=== PATIENT | male | born 1975 | race Caucasian/White ===

== ENCOUNTER 2024-06-13 10:13 | Inpatient (IN) ==
[2024-06-13] MEDS: OPTIRAY 320 125ml IV ONE (10:41)
[2024-06-13 10:43] LABS: iSTAT Creatinine 0.8 mg/dl (0.6-1.3); iSTAT Ionized Calcium 1.24 mmol/l (1.12-1.32); iSTAT Potassium 4.4 mmol/L (3.3-5.0)
--- NOTE | 2024-06-13 10:50 | CT Scan Report ---
CT head/brain wo con CLINICAL HISTORY: neuro deficit, acute stroke suspected Technique: Contiguous axial CT images of the head were acquired from the base of the skull to the adolfo ignacia without intravenous contrast administration. Images were viewed in brain, [facility]. Automated dose lowering techniques and/or adjustment according to patient size were utilized for this exam. Comparison: None available at the time of this dictation. Findings: The ventricles, basal cisterns, and cerebral sulci are normal. There is no acute intracranial hemorrh age or evidence of acute territorial infarction. Neither mass effect, shift of the midline structures , nor abnormal extra-axial fluid collections are shown. Soft tissue thickening seen in the sinuses most prominently in the bilateral maxillary sinuses. The o rbits appear normal. There are no acute fractures of the calvaria or scalp swelling. Impression: No acute intracranial hemorrhage, no evidence of acute territorial infarction or other acute intracra nial disease process. ACT 112: Negative or not required by law. Electronically signed by: Ramon Pink M.D. 06/13/2024 10:49 AM
[2024-06-13 10:52] LABS: Basophils # (auto) 0.06 K/uL (0.00-0.20); Basophils % (auto) 0.9 %; Eosinophils # (auto) 0.16 K/uL (0.00-0.50); Eosinophils % (auto) 2.4 %; Hematocrit (blood only) 45.3 % (42.0-52.0); Hemoglobin 15.6 g/dl (14.0-18.0); Immature Granulocytes # (auto) 0.03 K/uL (0.01-0.20); Immature Granulocytes % (auto) 0.4 %; Lymphocytes # (auto) 2.18 K/uL (1.20-3.40); Lymphocytes % (auto) 32.4 %; Mean Corpuscular Hgb Conc 34.4 g/dL (32.0-36.0); Mean Corpuscular Volume 84.2 fL (80.0-100.0); Mean Platelet Volume 8.5 fL (9.4-12.4); Monocytes # (auto) 0.43 K/uL (0.11-0.59); Monocytes % (auto) 6.4 %; Neutrophils # (auto) 3.86 K/uL (1.40-6.50); Neutrophils % (auto) 57.5 %; Platelet Count 235 K/uL (130-400); RDW Coefficient of Variation 11.9 % (11.5-14.5); RDW Standard Deviation 35.8 fL (36.4-46.3); Red Blood Count 5.38 M/uL (4.70-6.10); White Blood Count 6.72 K/ul (4.8-10.8)
--- NOTE | 2024-06-13 10:55 | CT Scan Report ---
CT ANGIOGRAM OF THE BRAIN CLINICAL HISTORY: Neurological deficit. Stroke like symptoms. Left-sided weakness. COMPARISON STUDY: Unenhanced CT of the brain performed concurrently on 06/13/2024. TECHNIQUE: Following the IV administration of 119 cc of Optiray 320, CT angiogram of the brain was pe rformed from the skull base to the vertex. Images are reviewed in the axial, sagittal, and coronal pl anes. 3-D MIPS images are created and assessed. IV contrast was administered without complication. A dose lowering technique was utilized adhering to the principles of ALARA. CT DOSE: 1392.18 mGy.cm FINDINGS: Brain parenchyma: The brain parenchyma is normal in appearance. There is no evidence of hemorrhage, m ass effect, or acute territorial ischemia noting angiographic phase technique. There is no evidence o f enhancing mass lesion on the angiogram phase images. No extra-axial fluid collection is seen. Anand- white matter differentiation is preserved. Ventricles, sulci, and cisterns: Normal in configuration. CT angiogram of the brain: There is mild atherosclerotic calcification of the cavernous carotid arter ies. The internal carotid arteries are widely patent, as are the anterior and middle cerebral arterie s. The vertebrobasilar system and posterior cerebral arteries are widely patent. The right vertebral artery is dominant. There is no aneurysm, high-grade stenosis, or focal vessel cutoff identified thro ughout the intracranial circulation. Dural sinuses: Clear as visualized. Orbits: The bony orbits are intact. The orbital contents are normal as visualized. Sinuses and mastoids: There is moderate mucosal thickening in the left maxillary antrum. Mild mucosal thickening is seen on the right. The remaining paranasal sinuses are clear. There are bilateral mast oid effusions. Calvarium: Unremarkable. IMPRESSION: 1. There is no evidence of hemorrhage, mass effect, or acute territorial ischemia noting angiographic phase technique. 2. Unremarkable CT angiogram of the brain. ACT 112: Negative or not required by law. Electronically signed by: Tima White M.D. 06/13/2024 10:53 AM
--- NOTE | 2024-06-13 10:56 | CT Scan Report ---
CT ANGIOGRAPHY OF THE NECK WITH CONTRAST CLINICAL HISTORY: neuro deficit, acute stroke suspected COMPARISON STUDY: No previous studies for comparison. Technique: CT angiography of the carotid and vertebral arteries was obtained using Optiray and 3D rec onstruction on an independent workstation. NASCET criteria was utilized. Automated exposure control was utilized for the study. A dose lowering technique was utilized adhering to the principles of ALA RA. Findings: Visualized portions of the lung apices are unremarkable. There is no cervical lymphadenopat hy. No cervical spine fractures are noted. There is moderate polypoid mucosal thickening of the left maxillary sinus, partially imaged on this exam. There is an apparent periapical lucency of the left f irst maxillary molar, partially imaged. There is mild calcified and noncalcified atherosclerotic plaq ue of the bilateral carotid bifurcations without stenosis. There is no aneurysm or dissection within the neck. The right vertebral artery is dominant and patent. There is moderate to severe stenosis at the origin of the left vertebral artery. IMPRESSION: 1. 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 Dominant, patent right adolfo tebral artery. 2. Mild plaque within the bilateral carotid bifurcations without stenosis within the bilateral common carotid or cervical internal carotid arteries. ACT 112: Negative or not required by law. Electronically signed by: Sarthak Means M.D. 06/13/2024 10:55 AM
--- NOTE | 2024-06-13 11:06 | Emergency Department Note ---
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 ED Provider Note NAME: JOHN PALENCIA AGE: 49 SEX: M : 1975 ARRIVES VIA: Walk-In INFORMANT: Patient ED PROVIDER(S): Vinay Aparicio MD CHIEF COMPLAINT: Stroke like symptoms, left upper and left lower extremity numbness and tingling PLAN: Disposition: Admit MEDICAL DECISION MAKING: The patient is a pleasant 49-year-old gentleman, [id number], with a past medical history of type 2 diabetes on metformin and insulin, hypertension who presents to the emergency department via walk-in for evaluation of numbness and tingling of his left arm and leg that he reports he noticed at 9 AM and did not feel any symptoms just prior to that. He denies any objective weakness but does feel that he has to place more effort in lifting his left leg. He describes the numbness and tingling of the left upper extremity along the ulnar aspect of the left arm and along the lateral aspect of the left leg. He denies any chest pain, shortness of breath, headache or dizziness. He denies any trouble speaking. Denies any prior episodes of similar symptoms. Patient is not on anticoagulation. Stroke alert was activated following triage assessment due to left upper and lower extremity symptoms. On my evaluation the patient is in no acute distress, afebrile with blood pressure 200/100s, heart rate in the 90s and vital signs otherwise stable. Appears clinically dry. On my examination the patient has no objective focal neurologic deficits. He describes subjective numbness and tingling of the left upper and lower extremity per HPI. Objectively 5/5 strength and SILT x 4 extremities. NIH score is 1 due to subjective numbness and tingling. CT of the head and CT of the head and neck were performed and were negative for ICH, ischemia or severe narrowing occlusion of large vessels. Stenosis of the left vertebral artery as described but note is made of right vertebral artery dominance. Mild carotid plaques are described. EKG without overt acute ischemia. CXR negative for acute cardiopulmonary process per my personal preliminary review/interpretation. WBC, H/H and platelets within normal limits. Chemistry without metabolic acidosis. Electrolytes and LFTs unremarkable. HS troponin 5.3, within normal limits. UA without evidence of infection. Case was discussed with [facility] telestroke neurology, Dr. Saldaña. Appreciate consultation and evaluation via telestroke monitor. He did feel there may be a component of weakness and did discuss and consent with the patient for TNK administration. Blood pressure was improved following IV fluid ration and to milligrams of IV labetalol. This was continued to be monitored closely. Nicardipine was ordered to the bedside if it were to be needed. Following 10 minutes the patient did report resolution of symptoms. Case was discussed with Ree Yung PA-C [facility]. Of note, I was notified of the patient's RN that the patient was having minor gingival bleeding which was occurring along the gingival line of the lower central and lateral incisors without overt hemorrhage. This was easily controlled with 4 x 4 followed by the placement of a teabag. Further management per admitting team. Triage Nursing notes reviewed and agree them. Prior/external medical records reviewed Vital Signs: reviewed Differential diagnosis: Infection, dehydration, metabolic abnormality, hypo/hyperglycemia, electrolyte disturbance, anemia, hypoxia, cardiac sources, intracerebral event, toxicologic, neurologic, as well as other pathologies. ER treatment provided: See below. Diagnostics interpreted by me: ECG: Normal sinus rhythm, 80 bpm, no ectopy, no overt ST elevation or depression, QTc 431, QRS 94. Cardiac Monitoring: An order for continuous cardiac monitoring was placed and demonstrated Normal sinus rhythm, 80 bpm, no ectopy. Laboratory studies: See below Imaging studies: See below Consultation(s): Dr. Saldaña, [facility] telestroke neurology. Ree Yung PA-C with Dr. Faith, [facility] hospitalist. HPI: The patient is a pleasant 49-year-old gentleman, [id number], with a past medical history of type 2 diabetes on metformin and insulin, hypertension who presents to the emergency department via walk-in for evaluation of numbness and tingling of his left arm and leg that he reports he noticed at 9 AM and did not feel any symptoms just prior to that. He denies any objective weakness but does feel that he has to place more effort in lifting his left leg. He describes the numbness and tingling of the left upper extremity along the ulnar aspect of the left arm and along the lateral aspect of the left leg. He denies any chest pain, shortness of breath, headache or dizziness. He denies any trouble speaking. Denies any prior episodes of similar symptoms. Patient is not on anticoagulation. ROS: See above HPI for pertinent positives & negatives. A total of 10 systems reviewed and were otherwise negative. VITALS:See Below PHYSICAL EXAMINATION: GENERAL: Awake, alert, well-appearing, in no distress HENT: Normocephalic, atraumatic. Oropharynx with dry mucous membranes and otherwise unremarkable. EYES: Normal conjunctiva. Sclera non-icteric. EOMI. No nystamgus. PEARRL. NECK: Supple. No nuchal rigidity. FROM. No JVD. RESPIRATORY: Clear to auscultation. CARDIAC: Regular rate, normal rhythm. Extremities warm and well perfused. Pulses equal. ABDOMEN: Soft, non-distended. No tenderness to palpation. No rebound or guarding. No masses. MUSCULOSKELETAL: Chest examination reveals no tenderness. The back is symmetrical on inspection without obvious abnormality. There is no CVA tenderness to palpation. No joint edema. LOWER EXTREMITIES: Calves are equal size bilaterally and non-tender. No edema. No discoloration. NEURO: Cranial nerves II-XII grossly intact. Speech is fluent. Subjective numbness and tingling of the left upper and lower extremity per HPI. Objectively 5/5 strength and SILT x 4 extremities. NIH score is 1 due to subjective numbness and tingling. SKIN: No rash or jaundice noted. ED COURSE: Critical Care: I have personally spent greater than 45 minutes of critical care time in the direct management of this patient. This includes bedside care, interpretation of diagnostic studies, and testing, discussion with consultants, patient, and family members, and other required patient management activities. This 45 minutes is in excess of all separately billable procedures. 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 (Acute) Stroke-like symptoms (Acute) Allergic reaction (Acute) Allergic reaction (Acute) Medical History Diabetes mellitus (09/01/12) Surgical History History of ankle surgery Family History Other No pertinent family history Social History Smoking Status: Never smoker Hx Alcohol Use: Yes Alcohol type: beer Hx Substance Use: No Preferred Language: Togolese Communication Ability: Effective Environmental Safety Specialist Required: No Beliefs That Will Affect Care: None Current Living Situation: Spouse Feels Safe at Home: Yes Assistive Devices: Glasses Allergies Allergies Allergy/AdvReac Type Severity Reaction Status Date / Time Penicillins Allergy Unknown Unknown Verified 10/30/19 23:45 Home Meds Home Medications Medication Instructions Recorded Confirmed gabapentin 300 mg capsule 300 mg PO HS 10/30/19 06/13/24 dulaglutide 0.75 mg/0.5 mL 0.75 mg subcut WK 06/13/24 06/13/24 subcutaneous pen injector (Trulicity) fluoxetine 20 mg capsule 20 mg PO QAM 06/13/24 06/13/24 metformin 500 mg tablet,extended 1,000 mg PO BID 06/13/24 06/13/24 release 24 hr Results & Data (ED) Vital Signs Vital Signs - 24 hr 06/13/24 10:16 06/13/24 10:53 06/13/24 10:53 Temperature 36.9 C Temperature Source Temporal Artery Scan Pulse Rate 84 91 H Pulse Rate [Apical] 83 Pulse Rate from SpO2 Sensor Pulse Rhythm [Apical] Regular Pulse Strength [Apical] Normal Respiratory Rate 20 14 Respiratory Effort / Characteristics Non-Labored Spontaneous Non-Labored Spontaneous Respiratory Depth Normal Normal Respiratory Pattern Regular Blood Pressure 197/105 H Blood Pressure [Right Arm] 203/103 H Blood Pressure Mean 135 Blood Pressure Mean [Right Arm] 136 Blood Pressure Position [Right Arm] Sitting Pulse Oximetry 97 99 Oxygen Delivery Method Room Air Room Air Sepsis Recent Fever Within 48 Hours No Sepsis New/Unexplained Change in Mental Status No Sepsis Action Taken by Nursing No Action Required 06/13/24 10:56 06/13/24 11:05 06/13/24 11:05 Temperature Temperature Source Pulse Rate 87 Pulse Rate [Apical] Pulse Rate from SpO2 Sensor 86 Pulse Rhythm [Apical] Pulse Strength [Apical] Respiratory Rate 18 Respiratory Effort / Characteristics Respiratory Depth Respiratory Pattern Blood Pressure 198/103 H 198/103 H Blood Pressure [Right Arm] Blood Pressure Mean 129 129 Blood Pressure Mean [Right Arm] Blood Pressure Position [Right Arm] Pulse Oximetry 99 Oxygen Delivery Method Sepsis Recent Fever Within 48 Hours Sepsis New/Unexplained Change in Mental Status Sepsis Action Taken by Nursing 06/13/24 11:09 06/13/24 11:22 06/13/24 11:22 Temperature Temperature Source Pulse Rate 86 Pulse Rate [Apical] Pulse Rate from SpO2 Sensor Pulse Rhythm [Apical] Pulse Strength [Apical] Respiratory Rate Respiratory Effort / Characteristics Respiratory Depth Respiratory Pattern Blood Pressure 198/103 H 182/95 H 182/95 H Blood Pressure [Right Arm] Blood Pressure Mean 132 132 Blood Pressure Mean [Right Arm] Blood Pressure Position [Right Arm] Pulse Oximetry Oxygen Delivery Method Sepsis Recent Fever Within 48 Hours Sepsis New/Unexplained Change in Mental Status Sepsis Action Taken by Nursing 06/13/24 11:26 06/13/24 11:26 06/13/24 11:30 Temperature Temperature Source Pulse Rate Pulse Rate [Apical] Pulse Rate from SpO2 Sensor Pulse Rhythm [Apical] Pulse Strength [Apical] Respiratory Rate Respiratory Effort / Characteristics Respiratory Depth Respiratory Pattern Blood Pressure 181/93 H 181/93 H 177/92 H Blood Pressure [Right Arm] Blood Pressure Mean 122 122 130 Blood Pressure Mean [Right Arm] Blood Pressure Position [Right Arm] Pulse Oximetry Oxygen Delivery Method Sepsis Recent Fever Within 48 Hours Sepsis New/Unexplained Change in Mental Status Sepsis Action Taken by Nursing 06/13/24 11:31 06/13/24 11:32 06/13/24 11:38 Temperature Temperature Source Pulse Rate 79 82 Pulse Rate [Apical] Pulse Rate from SpO2 Sensor 82 Pulse Rhythm [Apical] Pulse Strength [Apical] Respiratory Rate 18 Respiratory Effort / Characteristics Respiratory Depth Respiratory Pattern Blood Pressure 177/92 H 176/88 H Blood Pressure [Right Arm] Blood Pressure Mean 136 Blood Pressure Mean [Right Arm] Blood Pressure Position [Right Arm] Pulse Oximetry 99 Oxygen Delivery Method Sepsis Recent Fever Within 48 Hours Sepsis New/Unexplained Change in Mental Status Sepsis Action Taken by Nursing 06/13/24 11:41 06/13/24 11:42 06/13/24 11:42 Temperature Temperature Source Pulse Rate 77 Pulse Rate [Apical] Pulse Rate from SpO2 Sensor 77 Pulse Rhythm [Apical] Pulse Strength [Apical] Respiratory Rate 15 Respiratory Effort / Characteristics Respiratory Depth Respiratory Pattern Blood Pressure 174/87 H 174/87 H Blood Pressure [Right Arm] Blood Pressure Mean 121 121 Blood Pressure Mean [Right Arm] Blood Pressure Position [Right Arm] Pulse Oximetry 98 Oxygen Delivery Method Sepsis Recent Fever Within 48 Hours Sepsis New/Unexplained Change in Mental Status Sepsis Action Taken by Nursing 06/13/24 11:44 06/13/24 11:56 06/13/24 11:56 Temperature Temperature Source Pulse Rate 77 Pulse Rate [Apical] Pulse Rate from SpO2 Sensor Pulse Rhythm [Apical] Pulse Strength [Apical] Respiratory Rate 12 Respiratory Effort / Characteristics Respiratory Depth Respiratory Pattern Blood Pressure 171/89 H 171/89 H Blood Pressure [Right Arm] Blood Pressure Mean 119 119 Blood Pressure Mean [Right Arm] Blood Pressure Position [Right Arm] Pulse Oximetry Oxygen Delivery Method Sepsis Recent Fever Within 48 Hours Sepsis New/Unexplained Change in Mental Status Sepsis Action Taken by Nursing 06/13/24 11:57 06/13/24 12:00 06/13/24 12:05 Temperature 36.4 C L Temperature Source Oral Pulse Rate 78 Pulse Rate [Apical] 76 Pulse Rate from SpO2 Sensor 78 Pulse Rhythm [Apical] Regular Pulse Strength [Apical] Normal Respiratory Rate 19 13 Respiratory Effort / Characteristics Non-Labored Spontaneous Respiratory Depth Normal Respiratory Pattern Regular Blood Pressure 169/88 H Blood Pressure [Right Arm] 171/89 H Blood Pressure Mean 113 Blood Pressure Mean [Right Arm] 116 Blood Pressure Position [Right Arm] Semi-fowlers Pulse Oximetry 98 98 Oxygen Delivery Method Room Air Sepsis Recent Fever Within 48 Hours Sepsis New/Unexplained Change in Mental Status Sepsis Action Taken by Nursing 06/13/24 12:08 06/13/24 12:14 06/13/24 12:15 Temperature Temperature Source Pulse Rate 78 Pulse Rate [Apical] 75 Pulse Rate from SpO2 Sensor 78 Pulse Rhythm [Apical] Pulse Strength [Apical] Respiratory Rate 9 L 18 Respiratory Effort / Characteristics Respiratory Depth Respiratory Pattern Blood Pressure 175/89 H Blood Pressure [Right Arm] 175/89 H Blood Pressure Mean 130 Blood Pressure Mean [Right Arm] 117 Blood Pressure Position [Right Arm] Pulse Oximetry 97 98 Oxygen Delivery Method Sepsis Recent Fever Within 48 Hours Sepsis New/Unexplained Change in Mental Status Sepsis Action Taken by Nursing 06/13/24 12:15 06/13/24 12:23 06/13/24 12:26 Temperature Temperature Source Pulse Rate 79 80 Pulse Rate [Apical] Pulse Rate from SpO2 Sensor 79 79 Pulse Rhythm [Apical] Pulse Strength [Apical] Respiratory Rate 17 16 Respiratory Effort / Characteristics Respiratory Depth Respiratory Pattern Blood Pressure 175/89 H Blood Pressure [Right Arm] Blood Pressure Mean 130 Blood Pressure Mean [Right Arm] Blood Pressure Position [Right Arm] Pulse Oximetry 99 99 Oxygen Delivery Method Sepsis Recent Fever Within 48 Hours Sepsis New/Unexplained Change in Mental Status Sepsis Action Taken by Nursing 06/13/24 12:30 06/13/24 12:30 Temperature Temperature Source Pulse Rate Pulse Rate [Apical] Pulse Rate from SpO2 Sensor Pulse Rhythm [Apical] Pulse Strength [Apical] Respiratory Rate Respiratory Effort / Characteristics Respiratory Depth Respiratory Pattern Blood Pressure 171/88 H 171/88 H Blood Pressure [Right Arm] Blood Pressure Mean 101 101 Blood Pressure Mean [Right Arm] Blood Pressure Position [Right Arm] Pulse Oximetry Oxygen Delivery Method Sepsis Recent Fever Within 48 Hours Sepsis New/Unexplained Change in Mental Status Sepsis Action Taken by Nursing Laboratory Data Attestation: I reviewed the patient's lab results. 06/13/24 10:29 06/13/24 10:29 Lab Results 06/13/24 06/13/24 Range/Units 10:29 10:31 WBC 6.72 (4.8-10.8) K/ul RBC 5.38 (4.70-6.10) M/uL Hgb 15.6 (14.0-18.0) g/dl POC Hgb 16.0 (14.0-18.0) g/dl Hct 45.3 (42.0-52.0) % POC Hct 47 (42-52) % MCV 84.2 (80.0-100.0) fL MCH 29.0 (25.0-34.0) pg MCHC 34.4 (32.0-36.0) g/dL RDW Std Deviation 35.8 L (36.4-46.3) fL RDW Coeff of Ronen 11.9 (11.5-14.5) % Plt Count 235 (130-400) K/uL MPV 8.5 L (9.4-12.4) fL Immature Gran % (Auto) 0.4 % Neut % (Auto) 57.5 % Lymph % (Auto) 32.4 % Moca % (Auto) 6.4 % Eos % (Auto) 2.4 % Baso % (Auto) 0.9 % Neut # (Auto) 3.86 (1.40-6.50) K/uL Lymph # (Auto) 2.18 (1.20-3.40) K/uL Moca # (Auto) 0.43 (0.11-0.59) K/uL Eos # (Auto) 0.16 (0.00-0.50) K/uL Baso # (Auto) 0.06 (0.00-0.20) K/uL Immature Gran # (Auto) 0.03 (0.01-0.20) K/uL PT 9.9 (9.0-12.0) Seconds INR 0.9 (0.9-1.1) APTT 25 (21-31) Seconds PTT Ratio 0.9 POC Sodium 139 (135-144) mmol/L Sodium 137 (136-145) mmol/L POC Potassium 4.4 (3.3-5.0) mmol/L Potassium 4.3 (3.5-5.1) mmol/L POC Chloride 98 L (101-112) mmol/L Chloride 100 (98-107) mmol/L Carbon Dioxide 29 (21-32) mmol/L POC Total CO2 27 (24-31) mmol/L Anion Gap 8 (3-11) POC Anion Gap 19.0 (16-25) mmol/L POC BUN 9 (7-18) mg/dl BUN 11 (6-23) mg/dl Creatinine 0.78 (0.6-1.4) mg/dl POC Creatinine 0.8 (0.6-1.3) mg/dl Est Cr Clr Drug Dosing 147.3 ml/min eGFR 110.69 BUN/Creatinine Ratio 14.1 (10-20) Glucose 217 H (70-99(Fasting)) mg/dl POC Glucose (other) 219 H (70-99) mg/dl Calcium 10.2 (8.6-10.3) mg/dl POC Ioniz Calcium Lupillo 1.24 (1.12-1.32) mmol/l Magnesium 2.0 (1.7-2.4) mg/dl Total Bilirubin 0.4 (0.2-1.0) mg/dl AST 20 (13-39) U/L ALT 27 (7-52) U/L Alkaline Phosphatase 57 (34-104) U/L Troponin I High Sens 5.3 (0-20) pg/ml Total Protein 8.0 (6.0-8.3) gm/dl Albumin 4.9 (3.4-5.0) gm/dl Globulin 3.1 (2.5-4.0) gm/dl Albumin/Globulin Ratio 1.6 (0.9-2) Administered Medications Gabapentin (Gabapentin 300 Mg Cap) 300 mg PO HS HAYDEE Stop: 07/13/24 20:59 Last Admin: 06/13/24 21:36 Dose: 300 mg Documented By: DIANDRA Insulin Aspart (Insulin Aspart Per Unit Charge) 0 units SC ACHS HAYDEE Stop: 07/13/24 16:29 Last Admin: 06/13/24 21:36 Dose: Not Given Documented By: Admin: 06/13/24 16:37 Dose: 13 units Documented By: GLORIA Co-signed By: YOU Lisinopril (Lisinopril 5 Mg Tab) 5 mg PO QAM [facility] Stop: 07/13/24 13:14 Last Admin: 06/13/24 16:02 Dose: 5 mg Documented By: GLORIA Miscellaneous (Icu Electrolyte Replacement Protocol) 1 each N/A BID@06,18 [facility]; Protocol Stop: 06/20/24 17:59 Last Admin: 06/13/24 16:41 Dose: Not Given Documented By: GLORIA Discontinued Medications Gadobutrol (Gadobutrol 65ml Vial) 12 ml IV ONCE ONE Stop: 06/13/24 13:42 Last Admin: 06/13/24 13:44 Dose: 12 ml Documented By: MARNI Sodium Chloride (Nss) 1,000 mls @ 999 mls/hr IV .Q1H1M ONE Stop: 06/13/24 11:26 Last Infusion: 06/13/24 12:34 Dose: Infused Documented By: Admin: 06/13/24 11:08 Dose: 999 mls/hr Documented By: MARGRET Nicardipine HCl 25 mg/ Sodium (Chloride) 250 mls @ 50 mls/hr IV .Q5H [facility]; Protocol Stop: 07/13/24 11:29 Last Admin: 06/13/24 15:35 Dose: Not Given Documented By: GLORIA Tenecteplase 25 mg/ Syringe 5 mls @ 60 mls/min IV NOW STA Stop: 06/13/24 11:30 Last Admin: 06/13/24 11:27 Dose: 60 mls/min Documented By: MARGRET Co-signed By: LILLIANA Ioversol (Optiray 320 125ml) 119 ml IV ONCE ONE Stop: 06/13/24 10:42 Last Admin: 06/13/24 10:41 Dose: 119 ml Documented By: JANES Labetalol HCl (Labetalol Hcl Iv 5 Mg/Ml 20ml) 10 mg IV NOW STA Stop: 06/13/24 11:05 Last Admin: 06/13/24 11:09 Dose: 10 mg Documented By: MARGRET Zamora (Stat Iv Infusion Titration Per Protocol) 1 each N/A NOW STA Stop: 06/13/24 11:23 Last Admin: 06/13/24 15:34 Dose: Not Given Documented By: GLORIA Zamora (Icu Protocol For Hyperglycemia) 1 each N/A ACHS HAYDEE Stop: 06/15/24 16:29 Last Admin: 06/13/24 15:35 Dose: Not Given Documented By: GLORIA Zamora (Icu Protocol For Hyperglycemia) 1 each N/A ACHS HAYDEE Stop: 06/15/24 16:29 Last Admin: 06/13/24 15:36 Dose: Not Given Documented By: GLORIA Imaging Data Radiologist's Impression: Chest X-Ray 06/13/24 10:26 XR chest 1V portable CLINICAL HISTORY: neuro deficit, acute stroke suspected TECHNIQUE: Single frontal radiograph of the chest was obtained. Comparison: Comparison is made to chest radiograph 01/10/2014 FINDINGS: No lines and tubes are seen. The cardiomediastinal silhouette is normal. The lungs are clear. No evidence of pleural effusion or pneumothorax. IMPRESSION: No acute chest disease. ACT 112: Negative or not required by law. Electronically signed by: Ramon Pink M.D. 06/13/2024 11:[address] 06/13/24 10:26 CT head/brain wo con CLINICAL HISTORY: neuro deficit, acute stroke suspected Technique: Contiguous axial CT images of the head were acquired from the base of the skull to the vertex without intravenous contrast administration. Images were viewed in brain, subdural and bone windows. Automated dose lowering techniques and/or adjustment according to patient size were utilized for this exam. Comparison: None available at the time of this dictation. Findings: The ventricles, basal cisterns, and cerebral sulci are normal. There is no acute intracranial hemorrhage or evidence of acute territorial infarction. Neither mass effect, shift of the midline structures, nor abnormal extra-axial fluid collections are shown. Soft tissue thickening seen in the sinuses most prominently in the bilateral maxillary sinuses. The orbits appear normal. There are no acute fractures of the calvaria or scalp swelling. Impression: No acute intracranial hemorrhage, no evidence of acute territorial infarction or other acute intracranial disease process. ACT 112: Negative or not required by law. Electronically signed by: Ramon Pink M.D. 06/13/2024 10:49 AM Head CTA 06/13/24 10:26 CT ANGIOGRAM OF THE BRAIN CLINICAL HISTORY: Neurological deficit. Stroke like symptoms. Left-sided weakness. COMPARISON STUDY: Unenhanced CT of the brain performed concurrently on 06/13/2024. TECHNIQUE: Following the IV administration of 119 cc of Optiray 320, CT angiogram of the brain was performed from the skull base to the vertex. Images are reviewed in the axial, sagittal, and coronal planes. 3-D MIPS images are created and assessed. IV contrast was administered without complication. A dose lowering technique was utilized adhering to the principles of ALARA. CT DOSE: 1392.18 mGy.cm FINDINGS: Brain parenchyma: The brain parenchyma is normal in appearance. There is no evidence of hemorrhage, mass effect, or acute territorial ischemia noting angiographic phase technique. There is no evidence of enhancing mass lesion on the angiogram phase images. No extra-axial fluid collection is seen. Anand-white matter differentiation is preserved. Ventricles, sulci, and cisterns: Normal in configuration. CT angiogram of the brain: There is mild atherosclerotic calcification of the cavernous carotid arteries. The internal carotid arteries are widely patent, as are the anterior and middle cerebral arteries. The vertebrobasilar system and posterior cerebral arteries are widely patent. The right vertebral artery is dominant. There is no aneurysm, high-grade stenosis, or focal vessel cutoff identified throughout the intracranial circulation. Dural sinuses: Clear as visualized. Orbits: The bony orbits are intact. The orbital contents are normal as visualized. Sinuses and mastoids: There is moderate mucosal thickening in the left maxillary antrum. Mild mucosal thickening is seen on the right. The remaining paranasal sinuses are clear. There are bilateral mastoid effusions. Calvarium: Unremarkable. IMPRESSION: 1. There is no evidence of hemorrhage, mass effect, or acute territorial ischemia noting angiographic phase technique. 2. Unremarkable CT angiogram of the brain. ACT 112: Negative or not required by law. Electronically signed by: Tima White M.D. 06/13/2024 10:53 AM Neck CTA 06/13/24 10:26 CT ANGIOGRAPHY OF THE NECK WITH CONTRAST CLINICAL HISTORY: neuro deficit, acute stroke suspected COMPARISON STUDY: No previous studies for comparison. Technique: CT angiography of the carotid and vertebral arteries was obtained using Optiray and 3D reconstruction on an independent workstation. NASCET criteria was utilized. Automated exposure control was utilized for the study. A dose lowering technique was utilized adhering to the principles of ALARA. Findings: Visualized portions of the lung apices are unremarkable. There is no cervical lymphadenopathy. No cervical spine fractures are noted. There is moderate polypoid mucosal thickening of the left maxillary sinus, partially imaged on this exam. There is an apparent periapical lucency of the left first maxillary molar, partially imaged. There is mild calcified and noncalcified atherosclerotic plaque of the bilateral carotid bifurcations without stenosis. There is no aneurysm or dissection within the neck. The right vertebral artery is dominant and patent. There is moderate to severe stenosis at the origin of the left vertebral artery. IMPRESSION: 1. 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 Dominant, patent right vertebral artery. 2. Mild plaque within the bilateral carotid bifurcations without stenosis within the bilateral common carotid or cervical internal carotid arteries. ACT 112: Negative or not required by law. Electronically signed by: Sarthak Means M.D. 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
[2024-06-13] MEDS: SODIUM CHLORIDE 0.9% 1,000 ML IV ONE (11:08)
[2024-06-13] MEDS: LABETALOL HCL IV 5 MG/ML 20ML IV STA (11:09)
[2024-06-13 11:27] LABS: Albumin Globulin Ratio 1.6 (0.9-2); Albumin Level 4.9 gm/dl (3.4-5.0); BUN Creatinine Ratio 14.1 (10-20); Bilirubin,Total 0.4 mg/dl (0.2-1.0); Calcium 10.2 mg/dl (8.6-10.3); Creatinine Clr Calc Pharmacy 147.3 ml/min; Globulin 3.1 gm/dl (2.5-4.0); Potassium 4.3 mmol/L (3.5-5.1)
[2024-06-13] MEDS: TENECTEPLASE 25 MG in SYRINGE 0 ML IV STA (11:27)
[2024-06-13 11:33] LABS: Troponin I High Sensitivity 5.3 pg/ml (0-20)
[2024-06-13 11:34] LABS: INR 0.9 (0.9-1.1); Partial Thromboplastin Ratio 0.9; Partial Thromboplastin Time 25 Seconds (21-31); Prothrombin Time 9.9 Seconds (9.0-12.0)
--- NOTE | 2024-06-13 11:58 | XRay Report ---
XR chest 1V portable CLINICAL HISTORY: neuro deficit, acute stroke suspected TECHNIQUE: Single frontal radiograph of the chest was obtained. Comparison: Comparison is made to chest radiograph 01/10/2014 FINDINGS: No lines and tubes are seen. The cardiomediastinal silhouette is normal. The lungs are clear. No evid ence of pleural effusion or pneumothorax. IMPRESSION: No acute chest disease. ACT 112: Negative or not required by law. Electronically signed by: Ramon Pink M.D. 06/13/2024 11:57 AM
--- NOTE | 2024-06-13 12:24 | History & Physical Report ---
Date of Service June 13, 2024 Assessment & Plan (1) Stroke-like symptoms: Plan Philippe Donovan is a 49y/o M with PMHx significant for DM type II, diabetic peripheral neuropathy, hyperlipidemia, HTN, vitamin D deficiency, depression and celiac disease who presented to the ED for evaluation of stroke-like symptoms. 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 He was subsequently made a stroke alert on arrival to the ED. Patient was seen and evaluated by the telestroke neurologist from [facility]. Decision was ultimately made to administer TNK. TNK was administered at 11:27 AM. Patient reports that his symptoms are now significantly improved following TNK administration. His gums however did start to bleeding after receiving TNK. Stroke-Like Symptoms S/P TNK Administration: History as per above. Head CT was negative. Head CTA revealed mild atherosclerotic calcification of the cavernous carotid arteries but was otherwise unremarkable. Neck CTA showed moderate to severe stenosis at the origin of the left vertebral artery and mild plaque within the bilateral carotid bifurcations without stenosis within the bilateral common carotid/cervical internal carotid arteries. Brain MRI without any acute intracranial abnormaliti es. 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 Continue to monitor gingival bleeding with supportive measures. Symptoms have seemed to resolve following TNK administration. Neurology consult pending. No ASA for 24 hours. AM labs to include lipid panel and Hgb A1c. Will start atorvastatin 40mg daily tomorrow morning. PT/OT evaluations pending. Speech therapy evaluation pending. Chest Pain - RESOLVED: Patient was complaining of some nonspecific central chest pain prior to administration of TNK that has now completely resolved. Initial troponin was 5.3 and initial EKG without any overtly acute ischemic changes; however, will continue to trend troponin Q6H x 2 to further ensure no cardiac issues at this point. EKG with chest pain as needed. 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 Patient was quite hypertensive in the 200s/100s in the ED upon arrival. He is now s/p 10mg IV labetalol. His BP subsequently improved to 151/66 at time of admission. mentions that he used to take 5mg lisinopril daily however he has not done so in quite a long time. Will restart lisinopril 5mg daily tomorrow morning. 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 BSG checks ACHS. Most recent Hgb A1c was 12.9% on 05/20/2024. Repeat Hgb A1c in AM. Other Chronic Medical Conditions: Depression, diabetic peripheral neuropathy --> Can continue home medications for these specific conditions. DVT Prophylaxis: SCDs/TEDs for now in setting of TNK administration. Code Status: FULL CODE PCP: Chandana Abdi MD Disposition: Admit to ICU Patient seen in collaboration with Dr. Faith. Please see addendum. I spent a total of 65 minutes coordinating, documenting, and providing care for this patient excluding time spent in the performance of separately billed services. This included personally reviewing all current laboratories and imaging studies, medical reconciliation, outpatient chart review and discussion with specialists. This chart was completed in part utilizing Speech Voice Recognition Software. G rammatical errors, random word insertions, pronoun errors, and incomplete sentences are an occasional consequence of this system due to software limitations, ambient noise, and hardware issues. Any formal questions or concerns about the content, text, or information contained within the body of this dictation should be directly addressed to the provider for clarification. History of Present Illness Chief Complaint: Stroke-Like Symptoms Primary Care Provider: Chandana Abdi MD Philippe Donovan is a 49y/o M with PMHx significant for DM type II, diabetic peripheral neuropathy, hyperlipidemia, HTN, vitamin D deficiency, depression and celiac disease who presented to the ED for evaluation of stroke-like symptoms. History obtained from patient, family at bedside and associated chart review. 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 He was subsequently made a stroke alert on arrival to the ED. Patient was seen and evaluated by the telestroke neurologist from [facility]. Decision was ultimately made to administer TNK. TNK was administered at 11:27 AM. Patient reports that his symptoms are now significantly improved following TNK administration. He is still endorsing some mild weakness in his left upper extremity but he is able to actively move it without any issue. He denied any visual disturbances or changes. Patient with some bleeding gums following administration of TNK. He denies any further bleeding elsewhere. His reports that he was complaining of some headaches over the past couple of days but otherwise was feeling fine. He did have some very nonspecific central chest pain that has since resolved following TNK administration. He has no personal history of stroke or TIA that he can recall. Denies any recent trauma or fall. There was no facial drooping or speech difficulties. He does have hypertension however he does not take any medications for this. Patient was hypertensive in the 200s/100s in the ED upon arrival. He is now s/p 10mg IV labetalol. His BP subsequently improved to 151/66. mentions that he used to take 5mg lisinopril daily however he has not done so in quite a long time. He also used to take rosuvastatin 20mg daily for hyperlipidemia however he does not take that medication anymore. 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 (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) Stroke-like symptoms (Acute) Allergic reaction (Acute) Allergic reaction (Acute) Medical History Diabetes mellitus (09/01/12) Surgical History History of ankle surgery Family History Other No pertinent family history Social History Smoking Status: Never smoker Hx Alcohol Use: Yes Alcohol type: beer Hx Substance Use: No Preferred Language: Lithuanian Communication Ability: Effective Can Top Setter Required: No Beliefs That Will Affect Care: None Current Living Situation: Spouse Feels Safe at Home: Yes Assistive Devices: Glasses Review of Systems Review of Systems: At least ten systems reviewed and negative, except as noted in the HPI. Physical Exam Physical Exam: General: WD/WN, vitals as above, NAD, sitting up in bed, pleasant, conversing appropriately. A+Ox3, euthymic affect. HEENT: Normocephalic, atraumatic. PERRL, conjunctivae normal, anicteric sclerae. External ear and nose normal, bleeding gums noted. Respiratory: Normal respiratory effort, lungs clear to auscultation, no wheeze, rales, rhonchi. No accessory muscle use. Cardiovascular: Regular rate, rhythm, no murmur, normal peripheral pulses, no BLE edema. Vessels: No JVD. Abdomen/GI: Normal bowel sounds, soft, nontender, no hepatosplenomegaly. Extremities/Musculoskeletal: No cyanosis or clubbing, 4/5 LUE strength, 5/5 LLE strength, actively moves all extremities. Neurologic: EOMI, no focal deficits, CN's II-XI not formally tested but appear grossly intact bilaterally. Skin: No rashes, normal color, warm/dry. Results & Data Results & Data Vital Signs (Past 12 Hours) Vital Signs Temp Pulse Pulse Resp BP BP Pulse Ox 06/13/24 12:14 75 18 175/89 H 98 06/13/24 12:05 78 13 98 06/13/24 12:00 169/88 H 06/13/24 11:57 36.4 C L 76 19 171/89 H 98 06/13/24 11:56 171/89 H 06/13/24 11:56 171/89 H 06/13/24 11:44 77 12 06/13/24 11:42 174/87 H 06/13/24 11:42 174/87 H 06/13/24 11:41 77 15 98 06/13/24 11:38 176/88 H 06/13/24 11:32 82 18 99 06/13/24 11:31 79 177/92 H 06/13/24 11:30 177/92 H 06/13/24 11:26 181/93 H 06/13/24 11:26 181/93 H 06/13/24 11:22 182/95 H 06/13/24 11:22 182/95 H 06/13/24 11:09 86 198/103 H 06/13/24 11:05 198/103 H 06/13/24 11:05 198/103 H 06/13/24 10:56 87 18 99 06/13/24 10:53 91 H 06/13/24 10:53 83 14 203/103 H 99 06/13/24 10:16 36.9 C 84 20 197/105 H 97 O2 Del Method 06/13/24 12:14 06/13/24 12:05 06/13/24 12:00 06/13/24 11:57 Room Air 06/13/24 11:56 06/13/24 11:56 06/13/24 11:44 06/13/24 11:42 06/13/24 11:42 06/13/24 11:41 06/13/24 11:38 06/13/24 11:32 06/13/24 11:31 06/13/24 11:30 06/13/24 11:26 06/13/24 11:26 06/13/24 11:22 06/13/24 11:22 06/13/24 11:09 06/13/24 11:05 06/13/24 11:05 06/13/24 10:56 06/13/24 10:53 06/13/24 10:53 Room Air 06/13/24 10:16 Room Air Laboratory Results Short CBC 06/13/24 Range/Units 10:29 WBC 6.72 (4.8-10.8) K/ul Hgb 15.6 (14.0-18.0) g/dl Hct 45.3 (42.0-52.0) % Plt Count 235 (130-400) K/uL BMP 06/13/24 10:29 Sodium 137 Potassium 4.3 Chloride 100 Carbon Dioxide 29 BUN 11 Creatinine 0.78 Glucose 217 H Calcium 10.2 Liver Function 06/13/24 Range/Units 10:29 Total Bilirubin 0.4 (0.2-1.0) mg/dl AST 20 (13-39) U/L ALT 27 (7-52) U/L Alkaline Phosphatase 57 (34-104) U/L Albumin 4.9 (3.4-5.0) gm/dl Diagnostic Findings Chest X-Ray 06/13/24 10:26 XR chest 1V portable CLINICAL HISTORY: neuro deficit, acute stroke suspected TECHNIQUE: Single frontal radiograph of the chest was obtained. Comparison: Comparison is made to chest radiograph 01/10/2014 FINDINGS: No lines and tubes are seen. The cardiomediastinal silhouette is normal. The lungs are clear. No evidence of pleural effusion or pneumothorax. IMPRESSION: No acute chest disease. ACT 112: Negative or not required by law. Electronically signed by: Ramon Pink M.D. 06/13/2024 11:[address] 06/13/24 10:26 CT head/brain wo con CLINICAL HISTORY: neuro deficit, acute stroke suspected Technique: Contiguous axial CT images of the head were acquired from the base of the skull to the vertex without intravenous contrast administration. Images were viewed in brain, subdural and bone windows. Automated dose lowering techniques and/or adjustment according to patient size were utilized for this exam. Comparison: None available at the time of this dictation. Findings: The ventricles, basal cisterns, and cerebral sulci are normal. There is no acute intracranial hemorrhage or evidence of acute territorial infarction. Neither mass effect, shift of the midline structures, nor abnormal extra-axial fluid collections are shown. Soft tissue thickening seen in the sinuses most prominently in the bilateral maxillary sinuses. The orbits appear normal. There are no acute fractures of the calvaria or scalp swelling. Impression: No acute intracranial hemorrhage, no evidence of acute territorial infarction or other acute intracranial disease process. ACT 112: Negative or not required by law. Electronically signed by: Ramon Pink M.D. 06/13/2024 10:49 AM Head CTA 06/13/24 10:26 CT ANGIOGRAM OF THE BRAIN CLINICAL HISTORY: Neurological deficit. Stroke like symptoms. Left-sided weakness. COMPARISON STUDY: Unenhanced CT of the brain performed concurrently on 06/13/2024. TECHNIQUE: Following the IV administration of 119 cc of Optiray 320, CT angiogram of the brain was performed from the skull base to the vertex. Images are reviewed in the axial, sagittal, and coronal planes. 3-D MIPS images are created and assessed. IV contrast was administered without complication. A dose lowering technique was utilized adhering to the principles of ALARA. CT DOSE: 1392.18 mGy.cm FINDINGS: Brain parenchyma: The brain parenchyma is normal in appearance. There is no evidence of hemorrhage, mass effect, or acute territorial ischemia noting angiographic phase technique. There is no evidence of enhancing mass lesion on the angiogram phase images. No extra-axial fluid collection is seen. Anand-white matter differentiation is preserved. Ventricles, sulci, and cisterns: Normal in configuration. CT angiogram of the brain: There is mild atherosclerotic calcification of the cavernous carotid arteries. The internal carotid arteries are widely patent, as are the anterior and middle cerebral arteries. The vertebrobasilar system and posterior cerebral arteries are widely patent. The right vertebral artery is dominant. There is no aneurysm, high-grade stenosis, or focal vessel cutoff identified throughout the intracranial circulation. Dural sinuses: Clear as visualized. Orbits: The bony orbits are intact. The orbital contents are normal as visualized. Sinuses and mastoids: There is moderate mucosal thickening in the left maxillary antrum. Mild mucosal thickening is seen on the right. The remaining paranasal sinuses are clear. There are bilateral mastoid effusions. Calvarium: Unremarkable. IMPRESSION: 1. There is no evidence of hemorrhage, mass effect, or acute territorial isc hemia noting angiographic phase technique. 2. Unremarkable CT angiogram of the brain. ACT 112: Negative or not required by law. Electronically signed by: Tima White M.D. 06/13/2024 10:53 AM Neck CTA 06/13/24 10:26 CT ANGIOGRAPHY OF THE NECK WITH CONTRAST CLINICAL HISTORY: neuro deficit, acute stroke suspected COMPARISON STUDY: No previous studies for comparison. Technique: CT angiography of the carotid and vertebral arteries was obtained using Optiray and 3D reconstruction on an independent workstation. NASCET criteria was utilized. Automated exposure control was utilized for the study. A dose lowering technique was utilized adhering to the principles of ALARA. Findings: Visualized portions of the lung apices are unremarkable. There is no cervical lymphadenopathy. No cervical spine fractures are noted. There is moderate polypoid mucosal thickening of the left maxillary sinus, partially imaged on this exam. There is an apparent periapical lucency of the left first maxillary molar, partially imaged. There is mild calcified and noncalcified atherosclerotic plaque of the bilateral carotid bifurcations without stenosis. There is no aneurysm or dissection within the neck. The right vertebral artery is dominant and patent. There is moderate to severe stenosis at the origin of the left vertebral artery. IMPRESSION: 1. 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 Dominant, patent right vertebral artery. 2. Mild plaque within the bilateral carotid bifurcations without stenosis within the bilateral common carotid or cervical internal carotid arteries. ACT 112: Negative or not required by law. Electronically signed by: Sarthak Means M.D. 06/13/2024 10:55 AM Medications Administered Discontinued Medications Sodium Chloride (Nss) 1,000 mls @ 999 mls/hr IV .Q1H1M ONE Stop: 06/13/24 11:26 Last Admin: 06/13/24 11:08 Dose: 999 mls/hr Documented By: MARGRET Tenecteplase 25 mg/ Syringe 5 mls @ 60 mls/min IV NOW STA Stop: 06/13/24 11:30 Last Admin: 06/13/24 11:27 Dose: 60 mls/min Documented By: MARGRET Co-signed By: LILLIANA Ioversol (Optiray 320 125ml) 119 ml IV ONCE ONE Stop: 06/13/24 10:42 Last Admin: 06/13/24 10:41 Dose: 119 ml Documented By: JANES Labetalol HCl (Labetalol Hcl Iv 5 Mg/Ml 20ml) 10 mg IV NOW STA Stop: 06/13/24 11:05 Last Admin: 06/13/24 11:09 Dose: 10 mg Documented By: MARGRET Code Status & VTE Plan Code Status FULL CODE Supervising Physician Co-Signing Physician Notes 49y/o M with DM type II, diabetic peripheral neuropathy, hyperlipidemia, HTN, vitamin D deficiency, depression and celiac disease. He presented to the ED for evaluation of left facial numbness, heaviness and numbness of the left upper extremity and left lower extremity. A stroke alert was called and TNK was administered at 11:27 AM. During my evaluation the patient reports that his symptoms are now significantly improved following the TNK administration. He was hypertensive in the 200s/100s in the ED and is S/P 10mg IV labetalol. His BP has improved. He used to take 5mg lisinopril daily and a statin but went off both some time ago. General- adult male seen at bedside with his and mother present Head- atraumatic Eyes- PERRL, EOMI, anicteric ENT- oropharynx clear Neck- supple, no JVD, no adenopathy, no thyromegaly; carotids +2/2, no bruits ap preciated Lungs- clear to auscultation and percussion Heart- regular rhythm; no murmur, no gallop, no rub appreciated Abdomen- normal bowel sounds, soft, nontender, no masses or hepatosplenomegaly Extremities- no pretibial edema, no calf tenderness; peripheral pulses intact Neuro- alert, oriented x 3; PERRL, EOMI; no facial droop; no dysarthria; mild LUE weakness 4/5 Skin- warm & dry Chart, x-rays, laboratory data and history reviewed. Observed in the ICU, critical care consult, neurology consult, PT, OT and speech consults. Will need a high intensity statin and probable DAPT. Monitor BP. Check MRI. I agree with the assessment and plan by the MICHAEL as outlined above. A total of 40 minutes was spent in the care coordination for this patient.
--- NOTE | 2024-06-13 13:09 | Critical Care Consultation ---
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 Initial imaging unrevealing. MRI pending. Unfortunately he has developed some gingival bleeding associated with systemic thrombolytics. He is hypertensive and has poorly controlled diabetes. Recommendations: 1. Status post TNK administration: Continue to monitor in the ICU for signs of significant bleeding. 2. Gingival bleeding: Supportive measures currently. 3. Strokelike symptoms: Currently resolved. Continue with serial NIH exams. MRI of the brain pending. Will need formal neurology consultation. PT and OT evaluations. 4. Hypertension: Try and keep blood pressure below 180. Will allow for some permissive hypertension. Given his diabetes, low-dose FUNMI inhibitor will be started. 5. Diabetes: Will hold metformin given recent contrast load. Glycemic control per ICU protocol with insulin. Await hemoglobin A1c. Will observe in the ICU 24 hours and if follow-up imaging at 24-hour vivi shows no evidence of DIRECTOR TELEVISION hemorrhage, the patient can be downgraded out of the ICU and critical care services will sign off. History of Present Illness History of Present Illness Asked by hospitalist service to assist in evaluation management this patient status post TNK administration for strokelike symptoms. History is obtained from discussion with the patient and family at bedside as well as review the electronic medical record. Patient is a 49-year-old male with a history of diabetes and hypertension who presented to the emergency room this morning with complaints of numbness and tingling of his left arm and leg. He was evaluated as a stroke alert. Initial CTA of the head showed no large vessel obstruction and no evidence of ischemia. Telestroke consultation was obtained with Clair who felt there may be some subjective weakness on the left side and the patient was consented for and received TNK. Shortly thereafter he developed spontaneous hemorrhage of the gingiva. He has been given teabags to place over the area currently. No prior history of neurological disorders. Patient was significantly hypertensive on presentation. Allergies Allergy/AdvReac Type Severity Reaction Status Date / Time Penicillins Allergy Unknown Unknown Verified 10/30/19 23:45 Home Medications Medication Instructions Recorded Confirmed Type gabapentin 300 mg capsule 300 mg PO HS 10/30/19 06/13/24 History dulaglutide 0.75 mg/0.5 mL 0.75 mg subcut WK 06/13/24 06/13/24 [facility] fluoxetine 20 mg capsule 20 mg PO QAM 06/13/24 06/13/24 History metformin 500 mg tablet,extended 1,000 mg PO BID 06/13/24 06/13/24 History release 24 hr Patient History Medical History Diabetes mellitus (09/01/12) Surgical History History of ankle surgery Family History Other No pertinent family history Social History Smoking Status: Never smoker Hx Alcohol Use: Yes Alcohol type: beer Hx Substance Use: No Preferred Language: Surinamese Communication Ability: Effective Senior Speech Pathologist Required: No Beliefs That Will Affect Care: None Current Living Situation: Spouse Other Information That Helps Us Care for You: No Feels Safe at Home: Yes Safety Concerns: Feels Safe At This Time Assistive Devices: Glasses Review of Systems Review of Systems: Please refer to admission H&P. No additions or deletions Physical Exam Constitutional: WD/WN, vitals as above ENMT: Gingival bleeding noted Neck: trachea midline, no thyromegaly Respiratory: normal respiratory effort, lungs clear to auscultation Cardiovascular: RRR, no murmur, no edema Gastrointestinal (Abdomen): normal bowel sounds, soft, nontender, no he patosplenomegaly Musculoskeletal: Extremities: extremities normal to inspection Skin: no rashes, warm and dry Neurologic: Nonfocal exam Lymphatic: no cervical lymphadenopathy Results & Data Results & Data Vital Signs (Past 12 Hours) Vital Signs Temp Pulse Pulse Resp BP BP Pulse Ox 06/13/24 12:43 36.6 C 77 18 151/66 H 99 06/13/24 12:30 171/88 H 06/13/24 12:30 171/88 H 06/13/24 12:26 80 16 99 06/13/24 12:23 79 17 99 06/13/24 12:15 175/89 H 06/13/24 12:15 175/89 H 06/13/24 12:14 75 18 175/89 H 98 06/13/24 12:08 78 9 L 97 06/13/24 12:05 78 13 98 06/13/24 12:00 169/88 H 06/13/24 11:57 36.4 C L 76 19 171/89 H 98 06/13/24 11:56 171/89 H 06/13/24 11:56 171/89 H 06/13/24 11:44 77 12 06/13/24 11:42 174/87 H 06/13/24 11:42 174/87 H 06/13/24 11:41 77 15 98 06/13/24 11:38 176/88 H 06/13/24 11:32 82 18 99 06/13/24 11:31 79 177/92 H 06/13/24 11:30 177/92 H 06/13/24 11:26 181/93 H 06/13/24 11:26 181/93 H 06/13/24 11:22 182/95 H 06/13/24 11:22 182/95 H 06/13/24 11:09 86 198/103 H 06/13/24 11:05 198/103 H 06/13/24 11:05 198/103 H 06/13/24 10:56 87 18 99 06/13/24 10:53 91 H 06/13/24 10:53 83 14 203/103 H 99 06/13/24 10:16 36.9 C 84 20 197/105 H 97 O2 Del Method 06/13/24 12:43 06/13/24 12:30 06/13/24 12:30 06/13/24 12:26 06/13/24 12:23 06/13/24 12:15 06/13/24 12:15 06/13/24 12:14 06/13/24 12:08 06/13/24 12:05 06/13/24 12:00 06/13/24 11:57 Room Air 06/13/24 11:56 06/13/24 11:56 06/13/24 11:44 06/13/24 11:42 06/13/24 11:42 06/13/24 11:41 06/13/24 11:38 06/13/24 11:32 06/13/24 11:31 06/13/24 11:30 06/13/24 11:26 06/13/24 11:26 06/13/24 11:22 06/13/24 11:22 06/13/24 11:09 06/13/24 11:05 06/13/24 11:05 06/13/24 10:56 06/13/24 10:53 06/13/24 10:53 Room Air 06/13/24 10:16 Room Air Critical Care Results & Data Vital Signs (Past 12 Hours) Vital Signs Temp Pulse Pulse Resp BP BP Pulse Ox 06/13/24 12:43 36.6 C 77 18 151/66 H 99 06/13/24 12:30 171/88 H 06/13/24 12:30 171/88 H 06/13/24 12:26 80 16 99 06/13/24 12:23 79 17 99 06/13/24 12:15 175/89 H 06/13/24 12:15 175/89 H 06/13/24 12:14 75 18 175/89 H 98 06/13/24 12:08 78 9 L 97 06/13/24 12:05 78 13 98 06/13/24 12:00 169/88 H 06/13/24 11:57 36.4 C L 76 19 171/89 H 98 06/13/24 11:56 171/89 H 06/13/24 11:56 171/89 H 06/13/24 11:44 77 12 06/13/24 11:42 174/87 H 06/13/24 11:42 174/87 H 06/13/24 11:41 77 15 98 06/13/24 11:38 176/88 H 06/13/24 11:32 82 18 99 06/13/24 11:31 79 177/92 H 06/13/24 11:30 177/92 H 06/13/24 11:26 181/93 H 06/13/24 11:26 181/93 H 06/13/24 11:22 182/95 H 06/13/24 11:22 182/95 H 06/13/24 11:09 86 198/103 H 06/13/24 11:05 198/103 H 06/13/24 11:05 198/103 H 06/13/24 10:56 87 18 99 06/13/24 10:53 91 H 06/13/24 10:53 83 14 203/103 H 99 06/13/24 10:16 36.9 C 84 20 197/105 H 97 O2 Del Method 06/13/24 12:43 06/13/24 12:30 06/13/24 12:30 06/13/24 12:26 06/13/24 12:23 06/13/24 12:15 06/13/24 12:15 06/13/24 12:14 06/13/24 12:08 06/13/24 12:05 06/13/24 12:00 06/13/24 11:57 Room Air 06/13/24 11:56 06/13/24 11:56 06/13/24 11:44 06/13/24 11:42 06/13/24 11:42 06/13/24 11:41 06/13/24 11:38 06/13/24 11:32 06/13/24 11:31 06/13/24 11:30 06/13/24 11:26 06/13/24 11:26 06/13/24 11:22 06/13/24 11:22 06/13/24 11:09 06/13/24 11:05 06/13/24 11:05 06/13/24 10:56 06/13/24 10:53 06/13/24 10:53 Room Air 06/13/24 10:16 Room Air Lab & Micro Results (Past 24 Hours) RBC 5.38 M/uL (4.70-6.10) 06/13/24 WBC 6.72 K/ul (4.8-10.8) 06/13/24 Hgb 15.6 g/dl (14.0-18.0) 06/13/24 Hct 45.3 % (42.0-52.0) 06/13/24 MCV 84.2 fL (80.0-100.0) 06/13/24 MCH 29.0 pg (25.0-34.0) 06/13/24 MCHC 34.4 g/dL (32.0-36.0) 06/13/24 RDW Standard Deviation 35.8 fL (36.4-46.3) L 06/13/24 RDW Coefficient of Variation 11.9 % (11.5-14.5) 06/13/24 Plt Count 235 K/uL (130-400) 06/13/24 MPV 8.5 fL (9.4-12.4) L 06/13/24 Neutrophils (%) (Auto) 57.5 % 06/13/24 Lymphocytes (%) (Auto) 32.4 % 06/13/24 Monocytes # (Auto) 0.43 K/uL (0.11-0.59) 06/13/24 Eosinophils # (Auto) 0.16 K/uL (0.00-0.50) 06/13/24 Immature Granulocyte % (Auto) 0.4 % 06/13/24 Neutrophils # (Auto) 3.86 K/uL (1.40-6.50) 06/13/24 Lymphocytes # (Auto) 2.18 K/uL (1.20-3.40) 06/13/24 Monocytes # (Auto) 0.43 K/uL (0.11-0.59) 06/13/24 Eosinophils # (Auto) 0.16 K/uL (0.00-0.50) 06/13/24 Basophils # (Auto) 0.06 K/uL (0.00-0.20) 06/13/24 Immature Granulocyte # (Auto) 0.03 K/uL (0.01-0.20) 4 Na 137 mmol/L (136-145) 06/13/24 K 4.3 mmol/L (3.5-5.1) 06/13/24 Cl 100 mmol/L (98-107) 06/13/24 CO2 29 mmol/L (21-32) 06/13/24 Anion Gap 8 (3-11) 06/13/24 BUN 11 mg/dl (6-23) 06/13/24 Creatinine 0.78 mg/dl (0.6-1.4) 06/13/24 BUN/Creatinine Ratio 14.1 (10-20) 06/13/24 Glu 217 mg/dl (70-99(Fasting)) H 06/13/24 Ca 10.2 mg/dl (8.6-10.3) 06/13/24 Total Bilirubin 0.4 mg/dl (0.2-1.0) 06/13/24 AST 20 U/L (13-39) 06/13/24 ALT 27 U/L (7-52) 06/13/24 Alkaline Phosphatase 57 U/L (34-104) 06/13/24 TP 8.0 gm/dl (6.0-8.3) 06/13/24 Albumin 4.9 gm/dl (3.4-5.0) 06/13/24 Globulin 3.1 gm/dl (2.5-4.0) 06/13/24 Albumin/Globulin Ratio 1.6 (0.9-2) 06/13/24 Mg 2.0 mg/dl (1.7-2.4) 06/13/24 10: Calcium Level 10.2 mg/dl (8.6-10.3) 06/13/24 10: Prothromb Time International Ratio 0.9 (0.9-1.1) 06/13/24 10:2 9 Diagnostic Findings (Past 24 Hours) Chest X-Ray 06/13/24 10:26 XR chest 1V portable CLINICAL HISTORY: neuro deficit, acute stroke suspected TECHNIQUE: Single frontal radiograph of the chest was obtained. Comparison: Comparison is made to chest radiograph 01/10/2014 FINDINGS: No lines and tubes are seen. The cardiomediastinal silhouette is normal. The lungs are clear. No evidence of pleural effusion or pneumothorax. IMPRESSION: No acute chest disease. ACT 112: Negative or not required by law. Electronically signed by: Ramon Pink M.D. 06/13/2024 11:[address] 06/13/24 10:26 CT head/brain wo con CLINICAL HISTORY: neuro deficit, acute stroke suspected Technique: Contiguous axial CT images of the head were acquired from the base of the skull to the vertex without intravenous contrast administration. Images were viewed in brain, subdural and bone windows. Automated dose lowering techniques and/or adjustment according to patient size were utilized for this exam. Comparison: None available at the time of this dictation. Findings: The ventricles, basal cisterns, and cerebral sulci are normal. There is no acute intracranial hemorrhage or evidence of acute territorial infarction. Neither mass effect, shift of the midline structures, nor abnormal extra-axial fluid collections are shown. Soft tissue thickening seen in the sinuses most prominently in the bilateral maxillary sinuses. The orbits appear normal. There are no acute fractures of the calvaria or scalp swelling. Impression: No acute intracranial hemorrhage, no evidence of acute territorial infarction or other acute intracranial disease process. ACT 112: Negative or not required by law. Electronically signed by: Ramon Pink M.D. 06/13/2024 10:49 AM Head CTA 06/13/24 10:26 CT ANGIOGRAM OF THE BRAIN CLINICAL HISTORY: Neurological deficit. Stroke like symptoms. Left-sided weakness. COMPARISON STUDY: Unenhanced CT of the brain performed concurrently on 06/13/2024. TECHNIQUE: Following the IV administration of 119 cc of Optiray 320, CT angiogram of the brain was performed from the skull base to the vertex. Images are reviewed in the axial, sagittal, and coronal planes. 3-D MIPS images are created and assessed. IV contrast was administered without complication. A dose lowering technique was utilized adhering to the principles of ALARA. CT DOSE: 1392.18 mGy.cm FINDINGS: Brain parenchyma: The brain parenchyma is normal in appearance. There is no evidence of hemorrhage, mass effect, or acute territorial ischemia noting angiographic phase technique. There is no evidence of enhancing mass lesion on the angiogram phase images. No extra-axial fluid collection is seen. Anand-white matter differentiation is preserved. Ventricles, sulci, and cisterns: Normal in configuration. CT angiogram of the brain: There is mild atherosclerotic calcification of the cavernous carotid arteries. The internal carotid arteries are widely patent, as are the anterior and middle cerebral arteries. The vertebrobasilar system and posterior cerebral arteries are widely patent. The right vertebral artery is dominant. There is no aneurysm, high-grade stenosis, or focal vessel cutoff identified throughout the intracranial circulation. Dural sinuses: Clear as visualized. Orbits: The bony orbits are intact. The orbital contents are normal as visualized. Sinuses and mastoids: There is moderate mucosal thickening in the left maxillary antrum. Mild mucosal thickening is seen on the right. The remaining paranasal sinuses are clear. There are bilateral mastoid effusions. Calvarium: Unremarkable. IMPRESSION: 1. There is no evidence of hemorrhage, mass effect, or acute territorial ischemia noting angiographic phase technique. 2. Unremarkable CT angiogram of the brain. ACT 112: Negative or not required by law. Electronically signed by: Tima White M.D. 06/13/2024 10:53 AM Neck CTA 06/13/24 10:26 CT ANGIOGRAPHY OF THE NECK WITH CONTRAST CLINICAL HISTORY: neuro deficit, acute stroke suspected COMPARISON STUDY: No previous studies for comparison. Technique: CT angiography of the carotid and vertebral arteries was obtained using Optiray and 3D reconstruction on an independent workstation. NASCET criteria was utilized. Automated exposure control was utilized for the study. A dose lowering technique was utilized adhering to the principles of ALARA. Findings: Visualized portions of the lung apices are unremarkable. There is no cervical lymphadenopathy. No cervical spine fractures are noted. There is moderate polypoid mucosal thickening of the left maxillary sinus, partially imaged on this exam. There is an apparent periapical lucency of the left first maxillary molar, partially imaged. There is mild calcified and noncalcified atherosclerotic plaque of the bilateral carotid bifurcations without stenosis. There is no aneurysm or dissection within the neck. The right vertebral artery is dominant and patent. There is moderate to severe stenosis at the origin of the left vertebral artery. IMPRESSION: 1. 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 Dominant, patent right vertebral artery. 2. Mild plaque within the bilateral carotid bifurcations without stenosis within the bilateral common carotid or cervical internal carotid arteries. ACT 112: Negative or not required by law. Electronically signed by: Sarthak Means M.D. 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
[2024-06-13] MEDS ORDERED: GLUCAGON FOR INJ 1 MG VIAL SQ PRN (13:33)
[2024-06-13] MEDS ORDERED: PHARMACIST DISCHARGE MED REC CONSULT PRN (13:33)
[2024-06-13] MEDS ORDERED: GLUCOSE 10 TAB/TUBE PO PRN (13:33)
[2024-06-13] MEDS ORDERED: GLUCOSE 40% GEL 15 GM TUBE PO PRN (13:33)
[2024-06-13] MEDS ORDERED: CARBOHYDRATES FOR HYPOGLYCEMIA PO PRN (13:33)
[2024-06-13] MEDS ORDERED: DEXTROSE 50% 50 ML SYRINGE IV PRN (13:33)
[2024-06-13] MEDS: GADOBUTROL 65ML VIAL IV ONE (13:44)
--- NOTE | 2024-06-13 13:59 | Magnetic Resonance Report ---
MRI OF THE BRAIN COMBO CLINICAL HISTORY: Strokelike symptoms. Left upper extremity tingling and numbness. COMPARISON STUDY: CT of the brain performed the same date 06/13/2024. TECHNIQUE: MRI of the brain was performed utilizing various T1 and T2-weighted sequences in the axial , sagittal, and coronal planes. Contrast-enhanced sequences were acquired following the administratio n of 12 cc of Gadavist. FINDINGS: Brain parenchyma: There is minimal microangiopathic change. There is no hemorrhage or mass effect. Th ere is no restricted diffusion to suggest acute ischemia. No enhancing mass lesion is identified on t he postcontrast images. Anand-white matter differentiation is preserved. No extra-axial fluid collecti on is seen. The cerebellar tonsils are normal in configuration. Ventricles, sulci, and cisterns: Normal in configuration. Pituitary and sella: Unremarkable. Intracranial vasculature: Normal flow voids are maintained at the skull base. Orbits: The bony orbits are grossly intact. Orbital contents are normal in appearance. Sinuses and mastoids: There are bilateral mastoid effusions. Minor mucosal thickening is noted in the left maxillary sinus, with mild mucosal thickening seen on the right. Calvarium: Unremarkable. Cervical cord: Partially visualized cervical spinal cord is normal in morphology and signal intensity . IMPRESSION: No acute intracranial abnormality. ACT 112: Negative or not required by law. Electronically signed by: Tima White M.D. 06/13/2024 1:57 PM
[2024-06-13 14:32] LABS: Appearance Urine Clear (Clear); Bacteria Urine Automated None Seen (None Seen); Bilirubin Urine Negative (Negative); Blood Urine 1+ (Negative); Cast Urine Automated 0-2 /lpf (0-2); Color Urine Yellow; Epithelial Cell Urine Auto 0-2 /hpf (0-2); Glucose Urine UA 1+ (Negative); Ketones Urine Negative (Negative); Leukocyte Esterase Urine Negative (Negative); Nitrite Urine Negative (Negative); Protein Urine Negative (Negative); Specific Gravity Urine 1.027 (1.000-1.030); Urobilinogen Urine Negative (Negative); WBC Urine Automated 0-5 /hpf (0-5)
[2024-06-13] MEDS: STAT IV Infusion **Titration per Protocol STA (15:34)
[2024-06-13] MEDS: ICU Protocol for HYPERglycemia SCH ×2 (15:35→15:36)
[2024-06-13] MEDS: niCARdipine 25 MG in SODIUM CHLORIDE 0.9% 240 ML IV SCH (15:35)
--- OUTSIDE RECORDS SUMMARY | 2024-06-13 15:41 | External Medical Summary | Summary of Care ---
Author Name Unknown Organization [facility] Address [address] [place] [address] Phone [phone] Care Team Providers Care Lint Cleaner Name Role Phone Chandana Abdi MD Primary Care Provider Reason for Referral * Evaluate & Treat - Unlimited Visits (Within 10 days (routine)) - Authorized Specialty Diagnoses / Procedures Referred By Nilson eller Referred To Contact Pharmacist / Pharmacy Diagnoses Type 2 diabetes mellitus with hemoglobin A1c goal of less than 7.0% (HCC) Chandana Abdi MD [address] [place] [address] Referral ID Status Reason Start Date Expiration Date Visits Requested Visits Authorized [id number] Authorized Specialty Services Required 05/12/2024 11/08/2024 99 99 Question Answer Referral Priority Within 10 days (routine) Where should this appointment be scheduled? [facility] Referring Provider Role: Primary Care Reason for Referral: DM Target A1c: < 7 Comments Pharmacist Medication Therapy Management: Minimum frequency patient should be seen in person for medication management: as appropriate per clinical condition and patient status By my signature, I understand that my patient Philippe Donovan will have his medication therapy managed by the [facility] ([facility]) per established policies, procedures, and protocols. I also certify that this referral may serve as an initiation of service for the management of drug therapy in the above noted patient. [facility] providers will be responsible for scheduling patient visits, obtaining appropriate laboratory studies, and adjusting medication management therapy per patient's need, in addition to those roles spelled out in the clinic policy, procedures, and drug management protocols. I understand that the service provided by the [facility] Clinic is voluntary and have informed patient that they can refuse the service at their discretion. I am aware that the [facility] Clinic will provide me with a copy of the patient encounter via my [employer]. I authorize the [facility] to carry out these activities on my behalf. I consider this program to be a necessary part of the patient's medical care. Chandana Abdi MD Reason for Visit * Reason Onset Date Comments Follow Up Medication refil ls and would like to see about gabapentin due to nerve pain due to neuropathy Medication Administration 05/12/2024 Flu an d/or Pneumo Inj Encounter Details Date Type Department Care Team (Late st Contact Info) Description 05/12/2024 4:20 PM EDT Office Visit [facility] [address] [place] [address] Chandana Abdi MD [address] [place] [address] Need for prophylactic vaccination and inoculation against influenza*; Type 2 diabetes mellitus with hemoglobin A1c goal of less than 7.0% (HCC); Diabetic peripheral neuropathy (HCC); Grief; Moderate episode of recurrent major depressive disorder (HCC); HTN, goal below 140/90; Depression, unspecified depression type; Hyperlipidemia with target LDL less than 100 Allergies Active Allergy Reactions Criticality Noted Date Comments Metformin 05/08/2022 Diarrhea Penicillins Hives Medium 09/02/2012 Perflutren Lipid Microsphere Anaphylaxis,Hives,Itchin g High 01/19/2014 documented as of this encounter (statuses as of 05/12/2024) Medications Medication Sig Dispensed Refills Start Date End Date Status Lisinopril 5 MG Oral Tablet (Prinivil)Indica tions:HTN, goal below 140/90 Take 1 Tablet by mouth in the morning. 90 Tablet 3 4 Active OneTouch Verio w/Device KitIndications:T ype 2 diabetes mellitus with hemoglobin A1c goal of less than 7.0% (HCC) Use up to 4 times a day E11.9 1 Kit 4 Active Additional Information Patient not taking.Reported on 05/12/2024 OneTouch Verio In Vitro Strip (Glucose Blood)Indication s:Type 2 diabetes mellitus with hemoglobin A1c goal of less than 7.0% (HCC) Use up to 4 times a day E11.9 100 Strip 11 4 Active Additional Information Patient not taking.Reported on 05/12/2024 BD Pen Needle Mini U/F 31G X 5 MM (Insulin Pen Needle)Indicatio ns:Type 2 diabetes mellitus with hemoglobin A1c goal of less than 7.0% (HCC) USE DIRECTED WITH INSULIN INJECTION E11.9 100 Each 4 Active Rosuvastatin Calcium 20 MG Oral Tablet (Crestor)Indicat ions:Dyslipidemi a, goal LDL below 70 Take 1 Tablet by mouth in the morning. 90 Tablet 3 4 Active Insulin Glargine Solostar 100 UNIT/ML Subcutaneous Solution Pen-injector (Lantus SoloStar) Inject 10 Units under the skin in the morning. 15 mL 1 4 Active Cyclobenzaprine HCl 10 MG Oral Tablet (Flexeril) Take 1 Tablet by mouth in the morning and 1 Tablet before bedtime. 4 Active metFORMIN HCl ER 500 MG Oral Tablet Extended Release 24 Hour (Glucophage XR)Indications:T ype 2 diabetes mellitus with hemoglobin A1c goal of less than 7.0% (HCC) Take 1 Tablet by mouth daily for 7 days, THEN 2 Tablets daily for 14 days, THEN 2 Tablets 2 times a day for 7 days. 360 Tablet 3 4 06/09/20 24 Active Dulaglutide 0.75 MG/0.5ML Subcutaneous Solution Pen-injector (Trulicity)Indic ations:Type 2 diabetes mellitus with hemoglobin A1c goal of less than 7.0% (HCC) Inject 0.75 mg under the skin once a week. 2 mL 2 4 Active Gabapentin 300 MG Oral Capsule (Neurontin)Indic ations:Diabetic peripheral neuropathy (HCC) Take 1 Capsule by mouth at bedtime. 90 Capsule 3 4 Active FLUoxetine HCl 20 MG Oral Capsule (PROzac)Indicati ons:Depression, unspecified depression type Take 1 Capsule by mouth in the morning. 90 Capsule 3 4 Active FLUoxetine HCl 20 MG Oral Capsule (PROzac)Indicati ons:Depression, unspecified depression type Take 1 Capsule by mouth in the morning. 90 Capsule 3 4 05/12/20 24 Discontinued(Ref ill) Dulaglutide 1.5 MG/0.5ML Subcutaneous Solution Pen-injector (Trulicity)Indic ations:Type 2 diabetes mellitus with hemoglobin A1c goal of less than 7.0% (HCC) Inject 1.5 mg under the skin once a week. 6 mL 3 4 05/12/20 24 Discontinued metFORMIN HCl ER 500 MG Oral Tablet Extended Release 24 Hour (Glucophage XR)Indications:T ype 2 diabetes mellitus with hemoglobin A1c goal of less than 7.0% (HCC) TAKE 1 TABLET BY MOUTH EVERY DAY IN THE MORNING 90 Tablet 1 4 05/12/20 24 Discontinued(Ref ill) documented as of this encounter (statuses as of 05/12/2024) Active Problems Problem Noted Date Diagnosed Date Recurrent major depressive disorder 06/11/2022 Depression 05/08/2022 Diabetic peripheral neuropathy 05/08/2022 HTN, goal below 140/90 05/08/2022 Colon polyp 05/08/2013 Hyperlipidemia with target LDL less than 100 Overview: ICD-10 update of inactive term Vitamin D deficiency 03/28/2013 Type 2 diabetes mellitus wit h hemoglobin A1c goal of less than 7.0% Overview: ICD-10 update of inactive term documented as of this encounter (statuses as of 05/12/2024) Resolved Problems Problem Noted Date Diagnosed Date Resolved Date Body mass index (BMI) of 40. 0 to 44.9 in adult 05/31/2017 07/16/2022 Overview: Per Obesity protocol #1 documented as of this encounter (statuses as of 05/12/2024) Immunizations Name Administration Dates Next Due COVID-19 mRNA, LNP-s, No Pre serve, 2-Dose Series (Moderna) 02/22/2021,01/25/2021 Pneumococcal Conjugate Vacci ne, 20-valent ([id number]) 06/11/2022 Pneumococcal Polysaccharide PPV23 (Pneumovax) 01/11/2014 Seasonal Influenza, PF, 6 M & above, IM , (FluLaval or Fluzone) 10/05/2023,05/08/2022,07/03/2019 07/03/2020 Seasonal Influenza, Quadriva lent, No Preserve, IM 10/16/2016 Seasonal Influenza, Trivalen t, (IIV3), PF, (Fluzone) 05/12/2024 Seasonal Influenza, Trivalen t, (IIV3), with Preserv, (Fluzone) 09/02/2012 TDAP (age 10 and older)(Boostrix) 10/05/2023, documented as of this encounter Social History Tobacco Use Types Packs/Day Years Used Date Smoking Tobacco: Never Passive Smoke Exposure: Never Smokeless Tobacco: Never Alcohol Use Standard Drinks/Week Comments No 0 (1 standard drink = 0.6 oz pur e alcohol) PHQ-2 Answer Date Recorded PHQ Adult Total Score 19 05/08/2022 Hunger Vital Sign Answer Date Recorded Within the past 12 months, y ou worried that your food would run out before you got the money to buy more. Never true 09/06/19 24 Within the past 12 months, t he food you bought just didn't last and you didn't have money to get more. Never true 09/06/2023 Childcare Answer Date Recorded Do you feel overwhelmed with taking care of a child, family member or friend? No 09/06/2023 Does your family need help f inding childcare? (Household - for ages 0-17 years) Not on file 09/06/2023 Clothing Answer Date Recorded Have you been unable to get clothing when it was really needed? No 09/06/2023 Is your family able to get c lothes or diapers when needed? (Household - for ages 0-17 years) Not on file 09/06/2023 Personal Safety Answer Date Recorded Do you feel unsafe or have concerns for your saf ety? No 09/06/2023 Do you have concerns for you r family's safety? (Household - for ages 0-17 years) Not on file 09/06/2023 Utilities Answer Date Recorded Do you have trouble paying y our heating, water, or electric bill? No 09/06/2023 Is your family able to pay t he heat, water, or electric bill? (Household - for ages 0-17 years) Not on file 09/06/2023 Does your family have access to good internet? (Household - for ages 0-17 years) Not on file 09/06/2023 Employment Status Answer Date Recorded Are you unemployed or without regular income? No 09/06/2023 Does the household have a re gular source of income? (Household - for ages 0-17 years) Not on file 09/06/2023 Social Connections Answer Date Recorded How often do you feel lonely or isolated from th ose around you? Never 09/06/2023 Financial Resource Strain Answer Date R ecorded Do you have any trouble payi ng for your medications, or do you think you might in the future? No 09/06/2023 Does your family have troubl e paying for medicine? (Household - for ages 0-17 years) Not on file 09/06/2023 Transportation Needs Answer Date Record ed READ ONLY Do you have troubl e getting a ride to medical visits or work? Never True 09/06/2023 Does your family have a hard time getting a ride to doctors visits? (Household - for ages 0-17 years) Not on file 09/06/2023 Has lack of transportation k ept you from medical appointments, meetings, work, or from getting things needed for daily living? Check all that apply. (Adult - for ages 18 years and over) Not on file 09/06/2023 Do you (or your family) have trouble finding or paying for a ride (transportation)? (Household - for ages 0-17 years) Not on file 09/06/2023 Housing Stability Answer Date Recorded Do you currently live in a s helter or have no steady place to sleep at night? No 09/06/2023 READ ONLY Do you think you a re at risk of becoming homeless? No 09/06/2023 Does your family worry about paying for your home or becoming homeless? (Household - for ages 0-17 years) Not on file 0 09/06/2023 Are you homeless or worried that you might be in the future? (Adult - for ages 18 years and over) Not on file Are you (or your family) aileen eless or worried that you might be in the future? (Household - for ages 0-17 years) Not on file Food Insecurity Answer Date Recorded Do you need food for this week? No 09/06/2023 Are you able to get enough f ood for your family? (Household - for ages 0-17 years) Not on file 09/06/2023 Does your family need food t his week? (Household - for ages 0-17 years) Not on file 09/06/2023 Do you always have enough fo od for your family? (Household - for ages 0-17 years) Not on file 09/06/2023 Sex and Gender Information Value Date Recorded Sex Assigned at Male 08/01/2019 3:19 PM EST Gender Identity Male 08/01/2019 3:19 PM EST Sexual Orientation Straight 08/01/2019 3: 19 PM EST Job Start Date Occupation Industry Not on file Not on file Not on file documented as of this encounter Last Filed Vital Signs Vital Sign Reading Time Taken Comments Blood Pressure 152/92 05/12/2024 4:10 PM EDT Pulse 85 05/12/2024 4:10 PM EDT Temperature 36.6 C (97.8 F) 05/12/2024 4:10 PM ED T Respiratory Rate 17 05/12/2024 4:10 PM EDT Oxygen Saturation 95% 05/12/2024 4:10 PM EDT Inhaled Oxygen Concentration - - Weight 116.3 kg (256 lb 8 oz) 05/12/2024 4:10 PM EDT Height 172.7 cm (5' 8") 05/12/2024 4:10 PM EDT Body Mass Index 39 05/12/2024 4:10 PM EDT documented in this encounter Progress Notes * Chandana Abdi MD - 05/12/2024 4:56 PM EDT Images from the original note were not included. Assessment and Plan 1. Type 2 diabetes mellitus with hemoglobin A1c goal of less than 7.0% (HCC) Uncontrolled type 2 diabetes not any medications. We will start metformin 500 mg extended release once daily for the next week then increase to 1000 mg once daily followed by full-dose 1000 mg twice daily. Restart Trulicity 0.75 mg weekly. He would significantly benefit from a continuous glucose monitor to allow for more tightly monitor blood sugars. We will refer to MTM to assist in obtaining and to assist with medication management moving forward. Lab work as below next week. Goal moving forward we will be to increase his metformin to max dose and his Trulicity to max dose. Consider adding Jardiance once blood sugars are under improved control if not at goal. He will require restart of his statin and blood pressure medications including Juan Manuel/Arb. For his diabetic peripheral neuropathy olaf discuss that tighter blood pressure control will improve these symptoms. In the meantime we will use gabapentin 300 mg nightly for symptom control. We did discuss portion control and healthy diet. - metFORMIN HCl ER 500 MG Oral Tablet Extended Release 24 Hour (Glucophage XR); Take 1 Tablet by mouth daily for 7 days, THEN 2 Tablets daily for 14 days, THEN 2 Tablets 2 times a day for 7 days. Dispense: 360 Tablet; Refill: 3 - Dulaglutide 0.75 MG/0.5ML Subcutaneous Solution Pen-injector (Trulicity); Inject 0.75 mg under the skin once a week. Dispense: 2 mL; Refill: 2 - PHARMACIST MEDS THERAPY MGMT REFERRAL OP - COMPREHENSIVE METABOLIC PANEL; Future - HEMOGLOBIN A1C; Future - LIPID PANEL WITH DIRECT LDL IF TG IS HIGH; Future - VITAMIN B12; Future - CBC WITH WBC DIFFERENTIAL; Future 2. Diabetic peripheral neuropathy (HCC) - Gabapentin 300 MG Oral Capsule (Neurontin); Take 1 Capsule by mouth at bedtime. Dispense: 90 Capsule; Refill: 3 3. Grief Grief of the loss of his brother last week. Restart Prozac 20 mg daily. Consider increase based on response. 4. Moderate episode of recurrent major depressive disorder (HCC) 5. HTN, goal below 140/90 Blood pressure uncontrolled in office today at 152/92. Plan to restart hypertensive medications at upcoming appointment. 6. Depression, unspecified depression type - FLUoxetine HCl 20 MG Oral Capsule (PROzac); Take 1 Capsule by mouth in the morning. Dispense: 90 Capsule; Refill: 3 7. Hyperlipidemia with target LDL less than 100 Hyperlipidemia previously on rosuvastatin 20 mg daily. 8. Need for prophylactic vaccination and inoculation against influenza - INFLUENZA VAC, TRIVALENT, (IIV3), PF, 0.5 ML (FLUZONE) Wrap-Up Follow up with SANDIE KEANE. Follow up in office with a provider in one-month. History of Present Illness The patient is a 48-year-old male with past medical history of type 2 diabetes with diabetic peripheral neuropathy, hyperlipidemia, hypertension, depression who presents for follow up. Patient presents for follow up of primarily diabetes. He has a history of type 2 diabetes uncontrolled as he has been off of medications for a number of months. He was last seen in the office in early 2023 and started on metformin, insulin, Trulicity. He tells me today that he lost his brother he was age 56 over the weekend to complications of diabetes and he was now very motivated to get his diabetes under control. Physical Exam Vitals: 05/12/24 1610 Temp: 36.6 C (97.8 F) Pulse: 85 Resp: 17 SpO2: 95% BP: 152/92 BMI: 39.01 Physical Exam Physical Exam Vitals reviewed. Constitutional: General: He is not in acute distress. Pulmonary: Effort: Pulmonary effort is normal. No respiratory distress. Neurological: General: No focal deficit present. Mental Status: He is alert. Psychiatric: Mood and Affect: Mood normal. Behavior: Behavior normal. Time: I spent a total of 40-54 minutes (exact time 42 mins) on the date of service in preparation, delivery, and documentation of the care provided to the patient excluding any time spent in the performance of separately billed services. This note has been completed in part utilizing [employer] Speech Voice Recognition Software. Due to technical limitations of the software, grammatical errors, random word insertions, prounoun errors, and incomplete sentences may occur. Any formal questions or concerns about the content, text, or information contained within the body of this dictation should be directly addressed to the provider for clarification. * Catalina Jessica LPN - 05/12/2024 4:19 PM EDT Immunization Administration Documentation Time Out Procedure Performed: Yes Patient Identified (Ask Name/Date of ): Yes Does the patient have a fever greater than 101 degrees today? No Patient allergic to latex? No VFC Stock: No Immunization(s) verified: Yes, Immunization Name: Flu, VIS Sheet(s) given: Yes Verified Side and Site: Yes Verified Shot(s) with Parent(s)/Patient: Yes documented in this encounter Plan of Treatment Upcoming Encounters Date Type Department Care Team (Late st Contact Info) Description 05/15/2024 1:10 PM EDT Office Visit Pharmacy, [place] [address] [place] [address] [facility] [address] [place] [address] 06/14/2024 3:20 PM EDT Office Visit [place] [address] [place] [address] DecemberChandana MD [address], [place] [id number] Scheduled Orders Name Type Priority Associated Diagnoses Orde r Schedule COMPREHENSIVE METABOLIC PANEL Lab Routine Type 2 diabetes mellitus with hemoglobin A1c goal of less than 7.0% (HCC) Expected: 05/12/2024 (Approximate), Expires: 05/12/2025 HEMOGLOBIN A1C Lab Routine Type 2 diabetes mellitus with hemoglobin A1c goal of less than 7.0% (HCC) Expected: 05/12/2024 (Approximate), Expires: 05/12/2025 LIPID PANEL WITH DIRECT LDL IF TG IS HIGH Lab Routine Type 2 diabetes mellitus with hemoglobin A1c goal of less than 7.0% (HCC) Expected: 05/12/2024, Expires: 05/12/2025 VITAMIN B12 Lab Routine Type 2 diabetes mellitus with hemoglobin A1c goal of less than 7.0% (HCC) Expected: 05/12/2024 (Approximate), Expires: 05/12/2025 CBC WITH WBC DIFFERENTIAL Lab Routine Type 2 diabetes mellitus with hemoglobin A1c goal of less than 7.0% (HCC) Expected: 05/12/2024 (Approximate), Expires: 05/12/2025 Scheduled Referrals Name Type Priority Associated Diagnoses Orde r Schedule PHARMACIST MEDS THERAPY MGMT REFERRAL OP Referral Within 10 days (routine) Type 2 diabetes mellitus with hemoglobin A1c goal of less than 7.0% (HCC) Ordered: 05/12/2024 Health Maintenance Due Date Last Done Comments HIV Screening 1992 Hepatitis C Screening 1995 Hepatitis B Vaccine (1 of 3 - 19+ 3-dose series) 1996 Diabetic Foot Exam 07/03/2020 07/03/2019, 0 01/04/2018, 11/01/2015, Additional history exists Cologuard 2022 Colonoscopy 2022 08/02/2018, 12/11/2017, 05/05/2013, Additional history exists Colorectal Cancer Screening 2022 Fecal Occult Blood Test 2022 Sigmoidoscopy 2022 Depression Monitoring 05/08/2023 05/08/2022 COVID-19 Vaccine ( season) 2024 02/22/2021, 01/25/2021 HbA1c 07/22/2024 01/20/2024, 08/30, 07/22/2022, Additional history exists Albumin/Creatinine Ratio 09/11/2024 024, 01/04/2018, 11/04/2015, Additional history exists GFR 01/18/2025 01/19/2024, 08/30, 07/22/2022, Additional history exists Diabetic Eye Exam 01/26/2025 01/27/2024, , 07/13/2023, Additional history exists Lipid Panel 09/11/2028 09/11/2023, 04/30, 07/03/2019, Additional history exists DTap/Tdap Vaccines (3 - Td or Tdap) 10/05/2033 10/05/2023, 10/21/2012 RETIRED - COLONOSCOPY-ANNUAL AGES 18-100 Discontinued 08/02/2018, 08/02/2018, 05/05/2013, Additional history exists Pneumococcal Vaccine: Pediatrics (0 to 5 Years) and At-Risk Patients (6 to 64 Years) Completed 06/11/2022, 01/11/2014 Influenza Vaccine (FLU shot) Completed 05/12/2024, 10/05/2023, 05/08/2022, Additional history exists HPV (Gardasil) Vaccine Aged Out No lo nger eligible based on patient's age to complete this topic MENINGOCOCCAL (MENACTRA/MENVEO) Aged Out No longer eligible based on patient's age to complete this topic documented as of this encounter Medical Devices Not on filedocumented as of this encounter Visit Diagnoses Diagnosis Need for prophylactic vaccination and inoculation against influenza- Primary Type 2 diabetes mellitus with hemoglobin A1c goal of less than 7.0% (HCC) Diabetic peripheral neuropathy (HCC) Type II or unspecified type diabetes mellitus with neurological manifestations, not stated as uncontrolled Grief Adjustment disorder with depressed mood Moderate episode of recurrent major depressive disorder (HCC) HTN, goal below 140/90 Unspecified essential hypertension Depression, unspecified depression type Hyperlipidemia with target LDL less than 100 Other and unspecified hyperlipidemia documented in this encounter Care Teams Lint Cleaner Relationship Specialty Start Date End Date December, Chandana Paez MD [address] [place] [address] PCP - General Family Medicine 09/07/23 documented as of this encounter
--- OUTSIDE RECORDS SUMMARY | 2024-06-13 15:41 | External Medical Summary ---
Author Name Unknown Address Unknown Organization [id number]:LABORATORY [facility] - [address] [place] [address] Laboratory Report Ordering Provider Test Date Status 05/20/2024 09:17:07 Final Observation Date Value Abnormality Reference (Units ) Status Triglyceride 05/20/2024 09:17:07 124 <=174 ( mg/dL) Final Triglyceride Reference Range s (mg/dL):
<150 Acceptable
150-174 Borderline high
175-499 High
>=500 Very high Cholesterol 05/20/2024 09:17:07 188 <200 (mg /dL) Final Total Cholesterol Reference Ranges (mg/dL):
<200 Desirable
200-239 Borderline high
>=240 High HDL 05/20/2024 09:17:07 35 Below low normal >39 (mg/dL) Final HDL Cholesterol Reference Ra nges (mg/dL):
>=60 High (Desirable)
<50 Low (Undesirable) For Females
<40 Low (Undesirable) For Males NON-HDL CHOLESTEROL 05/20/2024 09:17:07 153 <=159 (mg/dL) Final Non-HDL Cholesterol Referenc e Range (mg/dL):
<100 Target level for high risk ASCVD patient
<130 Optimal for general population
130-159 Near optimal for general population
160-189 Borderline High
190-219 High
>=220 Very High LDL, (calculated) 05/20/2024 09:17:07 128 <= 129 (mg/dL) Final LDL Cholesterol Reference Ra nges (mg/dL):
<70 Target level for high risk ASCVD patient
<100 Optimal for general population
100-129 Near optimal for general population
130-159 Borderline high
160-189 High
>=190 Very high Performing Location LABORATORY [facility] [place] - [address] [facility] [address]
--- OUTSIDE RECORDS SUMMARY | 2024-06-13 15:41 | External Medical Summary ---
Author Name Unknown Address Unknown Organization [id number]:[facility] [place] [address] [place] [address] Laboratory Report Ordering Provider Test Date Status 05/20/2024 09:17:07 Final Observation Date Value Abnormality Reference (Units ) Status HbA1C 05/20/2024 09:17:07 12.9 Above high normal 4. 0-5.6 (%) Final The use of HbA1c to monitor glycemic status is based on normal hemoglobin and HbA composition. This test should not be used in patients with abnormal hemoglobin that affects the half life of the red blood cell or the in vivo glycation rates. Glucose, estimated average 05/20/2024 09:17:07 324 Above high normal <126 (mg/dL) Mat joaquin Performing Location [facility] [place] [address] [place] [address]
--- OUTSIDE RECORDS SUMMARY | 2024-06-13 15:41 | External Medical Summary ---
Author Name Unknown Address Unknown Organization [id number]:[facility] [address] [place] [address] Laboratory Report Ordering Provider Test Date Status 05/20/2024 09:17:07 Final Observation Date Value Abnormality Reference (Units ) Status Vitamin B12 05/20/2024 09:17:07 [phone] (pg/mL) Final Performing Location LABORATORY [facility] - [address] [place] [address]
--- OUTSIDE RECORDS SUMMARY | 2024-06-13 15:41 | External Medical Summary ---
Author Name Unknown Address Unknown Organization [id number]:LABORATORY [facility] [address] - [address] [place] [address] Laboratory Report Ordering Provider Test Date Status 05/20/2024 09:17:07 Final Observation Date Value Abnormality Reference (Units ) Status WBC, Total 05/20/2024 09:17:07 5.47 4.00-10.8 0 (K/uL) Final RBC 05/20/2024 09:17:07 4.73 4.50-5.25 (M/uL) Final Hemoglobin 05/20/2024 09:17:07 14.0 14.0-16.8 (g/dL) Final HCT 05/20/2024 09:17:07 41.7 40.0-48.4 (%) Final MCV 05/20/2024 09:17:07 88.2 82.0-99.5 (fL) Final MCH 05/20/2024 09:17:07 29.6 27.0-34.0 (pg) Final MCHC 05/20/2024 09:17:07 33.6 32.0-36.0 (g/dL) Final RDW 05/20/2024 09:17:07 12.5 11.5-15.5 (%) Final Platelets 05/20/2024 09:17:07 180 140-400 (K /uL) Final MPV 05/20/2024 09:17:07 9.0 6.6-11.1 ( fL) Final Performing Location LABORATORY [facility] 57[address] 0 - [address] [place] [address]
--- OUTSIDE RECORDS SUMMARY | 2024-06-13 15:41 | External Medical Summary | Summary of Care ---
Author Name Unknown Organization [facility] Address [address] [place] [address] Phone [phone] Care Team Providers Care Processing Rep Name Role Phone Chandana Abdi MD Primary Care Provider [phone] Reason for Visit * Reason Comments Outpatient Testing Encounter Details Date Type Department Care Team (Late st Contact Info) Description 05/20/2024 9:20 AM EDT Laboratory Laboratory, [facility] [address] [facility] [place] [phone] [facility] [place] [address] Type 2 diabetes mellitus with hemoglobin A1c goal of less than 7.0% ([facility]) Allergies Active Allergy Reactions Criticality Noted Date Comments Metformin 05/08/2022 Diarrhea Penicillins Hives Medium 09/02/2012 Perflutren Lipid Microsphere Anaphylaxis,Hives,Itchin g High 01/19/2014 documented as of this encounter (statuses as of 05/20/2024) Medications Medication Sig Dispensed Refills Start Date End Date Status Lisinopril 5 MG Oral Tablet (Prinivil)Indicatio ns:HTN, goal below 140/90 Take 1 Tablet by mouth in the morning. 90 Tablet 3 09/07/2023 Active OneTouch Verio w/Device KitIndications:Type 2 diabetes mellitus with hemoglobin A1c goal of less than 7.0% (HCC) Use up to 4 times a day E11.9 1 Kit 09/07/2023 Active Additional Information Patient not taking.Reported on 05/12/2024 OneTouch Verio In Vitro Strip (Glucose Blood)Indications:T ype 2 diabetes mellitus with hemoglobin A1c goal of less than 7.0% (HCC) Use up to 4 times a day E11.9 100 Strip 11 09/07/2023 Active Additional Information Patient not taking.Reported on 05/12/2024 BD Pen Needle Mini U/F 31G X 5 MM (Insulin Pen Needle)Indications: Type 2 diabetes mellitus with hemoglobin A1c goal of less than 7.0% (HCC) USE DIRECTED WITH INSULIN INJECTION E11.9 100 Each 09/07/2023 Active Rosuvastatin Calcium 20 MG Oral Tablet (Crestor)Indication s:Dyslipidemia, goal LDL below 70 Take 1 Tablet by mouth in the morning. 90 Tablet 3 10/05/2023 Active Insulin Glargine Solostar 100 UNIT/ML Subcutaneous Solution Pen-injector (Lantus SoloStar) Inject 10 Units under the skin in the morning. 15 mL 1 10/25/2023 Active Cyclobenzaprine HCl 10 MG Oral Tablet (Flexeril) Take 1 Tablet by mouth in the morning and 1 Tablet before bedtime. 01/19/2024 Active Dulaglutide 0.75 MG/0.5ML Subcutaneous Solution Pen-injector (Trulicity)Indicati ons:Type 2 diabetes mellitus with hemoglobin A1c goal of less than 7.0% (HCC) Inject 0.75 mg under the skin once a week. 2 mL 2 05/12/2024 Active Gabapentin 300 MG Oral Capsule (Neurontin)Indicati ons:Diabetic peripheral neuropathy (HCC) Take 1 Capsule by mouth at bedtime. 90 Capsule 3 05/12/2024 Active FLUoxetine HCl 20 MG Oral Capsule (PROzac)Indications :Depression, unspecified depression type Take 1 Capsule by mouth in the morning. 90 Capsule 3 05/12/2024 Active metFORMIN HCl ER 500 MG Oral Tablet Extended Release 24 Hour (Glucophage XR)Indications:Type 2 diabetes mellitus with hemoglobin A1c goal of less than 7.0% (HCC) Take 2 Tablets by mouth in the morning and 2 Tablets before bedtime. 360 Tablet 3 05/16/2024 05/11/2025 Active documented as of this encounter (statuses as of 05/20/2024) Active Problems Problem Noted Date Diagnosed Date [...] as of this encounter (statuses as of 05/20/2024) Resolved Problems Problem Noted Date Diagnosed Date Resolved Date Body mass index (BMI) of 40. 0 to 44.9 in adult 05/31/2017 07/16/2022 Overview: Per Obesity protocol #1 documented as of this encounter (statuses as of 05/20/2024) Immunizations Name Administration Dates Next Due COVID-19 mRNA, LNP-s, No Pre serve, 2-Dose Series (Moderna) 02/22/2021,01/25/2021 Pneumococcal Conjugate Vacci ne, 20-valent ([id number]) 06/11/2022 Pneumococcal Polysaccharide PPV23 (Pneumovax) 01/11/2014 Seasonal [...] on file documented as of this encounter Plan of Treatment Upcoming Encounters Date Type Department Care Team (Late st Contact Info) Description 06/14/2024 3:20 PM EDT Office Visit [facility] [address] [place] [address] MayChandana MD [address] [place] [facility] [place] [address] Pending Results Name Type Priority Associated Diagnoses Date /Time COMPREHENSIVE METABOLIC PANEL Lab Routine Type 2 diabetes mellitus with hemoglobin A1c goal of less than 7.0% (HCC) 05/20/2024 9:17 AM EDT HEMOGLOBIN A1C Lab Routine Type 2 diabetes mellitus with hemoglobin A1c goal of less than 7.0% ([facility]) 05/20/2024 9:17 AM EDT LIPID PANEL WITH DIRECT LDL IF TG IS HIGH Lab Routine Type 2 diabetes mellitus with hemoglobin A1c goal of less than 7.0% ([facility]) 05/20/2024 9:17 AM EDT VITAMIN B12 Lab Routine Type 2 diabetes mellitus with hemoglobin A1c goal of less than 7.0% ([facility]) 05/20/2024 9:17 AM EDT Health Maintenance Due Date Last Done Comments HIV Screening 1992 Hepatitis C Screening 1995 Hepatitis B Vaccine (1 of 3 - 19+ 3-dose series) 1996 Diabetic Foot Exam 07/03/2020 07/03/2019, 0 01/04/2018, 11/01/2015, Additional history exists Cologuard 2022 Colonoscopy 2022 08/02/2018, 12/0 11/2017, 05/05/2013, Additional history exists Colorectal Cancer Screening [...] Not on filedocumented as of this encounter Procedures Procedure Name Priority Date/Time Associated Diagnosis Comments DIFFERENTIAL, AUTOMATED Routine 05/20/2024 9:17 AM EDT Type 2 diabetes mellitus with hemoglobin A1c goal of less than 7.0% (HCC) CBC Routine 05/20/2024 9:17 AM EDT Type 2 diabetes mellitus with hemoglobin A1c goal of less than 7.0% (HCC) CBC Routine 05/20/2024 9:17 AM EDT Type 2 diabetes mellitus with hemoglobin A1c goal of less than 7.0% (HCC) documented in this encounter Results * DIFFERENTIAL, AUTOMATED (05/20/2024 9:17 AM EDT) WBC 5.47 4.00 - 10.80 K/uL 05/20/2024 9:25 AM EDT LAB[facility] [place] [facility]10 Neutrophils % 56.1 40.0 - 75.0 % 05/20/2024 9:25 AM EDT [facility] [place] [facility]10 Lymphocytes % 32.2 18.0 - 42.0 % 05/20/2024 9:25 AM EDT LAB[facility] [place] [facility]10 Monocytes % 8.8 1.0 - 11.0 % 05/20/2024 9:25 AM EDT [facility] [place] [facility]10 Eosinophils % 2.4 0.0 - 6.0 % 05/20/2024 9:25 AM EDT LAB[facility] [place] [facility] Basophils % 0.5 0.0 - 2.0 % 05/20/2024 9:25 AM EDT LAB[facility] [place] [facility] Absolute Neutrophils 3.07 1.80 - 7.70 K/uL 05/20/2024 9:25 AM EDT LAB[facility] [place] [facility] Absolute Lymphocytes 1.76 1.00 - 4.80 K/ul 05/20/2024 9:25 AM EDT LAB[facility] [place] [facility] Absolute Monocytes 0.48 0.00 - 1.10 K/uL 05/20/2024 9:25 AM EDT LAB[facility] [place] [facility] Absolute Eosinophils 0.13 0.00 - 0.70 K/uL 05/20/2024 9:25 AM EDT LAB[facility] [place] [facility] Absolute Basophils 0.03 0.00 - 0.20 K/uL 05/20/2024 9:25 AM EDT LAB[facility] [place] 57[facility]10 Blood Venous blood specimen / Unknown Venipuncture / Unknown 05/20/2024 9:17 AM EDT 05/20/2024 9:17 AM EDT Chandana Abdi MD LAB BLOOD ORDERABLES LAB[facility] [place] [address] [place] [address] * CBC (05/20/2024 9:17 AM EDT) WBC 5.47 4.00 - 10.80 K/uL 05/20/2024 9:25 AM EDT LAB[facility] [place] [facility] RBC 4.73 4.50 - 5.25 M/uL 05/20/2024 9:25 AM EDT LAB[facility] [place] [facility] HGB 14.0 14.0 - 16.8 g/dL 05/20/2024 9:25 AM EDT LAB[facility] [place] [facility] HCT 41.7 40.0 - 48.4 % 05/20/2024 9:25 AM EDT LAB[facility] [place] [facility] MCV 88.2 82.0 - 99.5 fL 05/20/2024 9:25 AM EDT [facility] [place] [facility] MCH 29.6 27.0 - 34.0 pg 05/20/2024 9:25 AM EDT [facility] [place] [facility] MCHC 33.6 32.0 - 36.0 g/dL 05/20/2024 9:25 AM EDT LAB[facility] [place] [facility] RDW 12.5 11.5 - 15.5 % 05/20/2024 9:25 AM EDT LAB[facility] [place] [facility] PLT 180 140 - 400 K/uL 05/20/2024 9:25 AM EDT [facility] [place] [facility] MPV 9.0 6.6 - 11.1 fL 05/20/2024 9:25 AM EDT LAB[facility] [place] 57[facility]10 Blood Venous blood specimen / Unknown Venipuncture / Unknown 05/20/2024 9:17 AM EDT 05/20/2024 9:17 AM EDT Chandana Abdi MD LAB BLOOD ORDERABLES [facility]AT[facility] [place] [address] [place] [address] documented in this encounter Visit Diagnoses Diagnosis Type 2 diabetes mellitus with hemoglobin A1c goal of less than 7.0% ([facility]) documented in this encounter Care Teams Processing Rep Relationship Specialty Start Date End Date December, Chandana Paez MD [address] [place] [address] PCP - General Family Medicine 09/07/23 documented as of this encounter
--- OUTSIDE RECORDS SUMMARY | 2024-06-13 15:41 | External Medical Summary ---
Author Name Unknown Address Unknown Organization K0G:LABORATORY [place] [address] - [address] [place] [address] Laboratory Report Ordering Provider Test Date Status 05/20/2024 09:17:07 Final Observation Date Value Abnormality Reference (Units ) Status BUN 05/20/2024 09:17:07 21 Above high normal 6-20 (mg/dL) Final Creatinine 05/20/2024 09:17:07 0.9 0.6-1.2 (mg/dL) Final Glomerular filtration rate/1.73 sq M.predicted [Volume Rate/Area] in Serum, Plasma or Blood by Creatinine-based formula (CKD-EPI) 05/20/2024 09:17:07 >90 >=60 (mL/min) Final eGFR is calculated based on the CKD-EPI 2020 equation. Sodium 05/20/2024 09:17:07 139 135-146 (m mol/L) Final Potassium 05/20/2024 09:17:07 4.8 3.5-5.1 (m mol/L) Final Cl 05/20/2024 09:17:07 103 98-107 (mm ol/L) Final CO2 05/20/2024 09:17:07 26 22-32 (mmo l/L) Final Anion gap 05/20/2024 09:17:07 10 7-15 (mmol /L) Final Glucose 05/20/2024 09:17:07 264 Above high normal 70 -120 (mg/dL) Final Albumin 05/20/2024 09:17:07 3.9 3.8-5.0 (g /dL) Final AST (Aspartate aminotransferase) 05/20/2024 09:17:07 18 10-50 (U/L) Fin al Alk Phos 05/20/2024 09:17:07 57 35-130 (U/ L) Final Bilirubin, Total 05/20/2024 09:17:07 <0.2 <=1 .2 (mg/dL) Final Calcium 05/20/2024 09:17:07 9.2 8.4-10.2 ( mg/dL) Final Protein 05/20/2024 09:17:07 6.1 6.0-8.3 (g /dL) Final ALT (Alanine aminotransferase) 05/20/2024 09:17:07 29 10-50 (U/L) Mat joaquin Performing Location LABORATORY [place] [address] [place] [address]
--- OUTSIDE RECORDS SUMMARY | 2024-06-13 15:41 | External Medical Summary | Summary of Care ---
Author Name Unknown Organization [facility] Address [address] [place] [address] Phone [phone] Care Team Providers Care Marquetry Worker Name Role Phone Chandana Abdi MD Primary Care Provider [phone] Encounter Details Date Type Department Care Team (Late st Contact Info) Description 05/16/2024 Orders Only PATIENT PORTAL DO NOT DELETE THIS DEPT USED BY [place] [id number] Allergies Active Allergy Reactions Criticality Noted Date Comments Metformin 05/08/2022 Diarrhea Penicillins Hives Medium 09/02/2012 Perflutren Lipid Microsphere Anaphylaxis,Hives,Itchin g High 01/19/2014 documented as of this encounter (statuses as of 05/16/2024) Medications Medication Sig Dispensed Refills Start Date [...] days, THEN 2 Tablets 2 times a day. 395 Tablet 05/16/2024 09/04/2024 Active documented as of this encounter (statuses as of 05/16/2024) Active Problems Problem Noted Date Diagnosed Date [...] as of this encounter (statuses as of 05/16/2024) Resolved Problems Problem Noted Date Diagnosed Date Resolved Date Body mass index (BMI) of 40. 0 to 44.9 in adult 05/31/2017 07/16/2022 Overview: Per Obesity protocol #1 documented as of this encounter (statuses as of 05/16/2024) Immunizations Name Administration Dates Next Due COVID-19 mRNA, LNP-s, No Pre serve, 2-Dose Series (Moderna) 02/22/2021,01/25/2021 Pneumococcal Conjugate Vacci ne, 20-valent ([id number]) 06/11/2022 Pneumococcal Polysaccharide PPV23 (Pneumovax) 01/11/2014 Seasonal [...] Description 06/14/2024 3:20 PM EDT Office Visit [facility] [place] [address] [place] [phone] December, Chandana Paez MD [address] [place] [address] Health Maintenance Due Date Last Done Comments [...] Not on filedocumented as of this encounter Care Teams Marquetry Worker Relationship Specialty Start Date End Date December, Chandana Paez MD [address] [place] [facility] [place] [address] PCP - General Family Medicine 09/07/23 documented as of this encounter
--- OUTSIDE RECORDS SUMMARY | 2024-06-13 15:41 | External Medical Summary ---
Author Name Unknown Address Unknown Organization K0G:LABORATORY [place] [address] - [address] [place] [address] Laboratory Report Ordering Provider Test Date Status 05/20/2024 09:17:07 Final Observation Date Value Abnormality Reference (Units ) Status SYNC LEUKOCYTES IN BLOOD BY AUTOMATED COUNT 05/20/2024 09:17:07 5.47 4.00-10.80 (K/uL) Final Segs 05/20/2024 09:17:07 56.1 40.0-75.0 (%) Final Lymphs % 05/20/2024 09:17:07 32.2 18.0-42.0 (%) Final Monos 05/20/2024 09:17:07 8.8 1.0-11.0 (%) Final Eosinophils 05/20/2024 09:17:07 2.4 0.0-6.0 (%) Final Basos 05/20/2024 09:17:07 0.5 0.0-2.0 (%) Final Absolute Segs 05/20/2024 09:17:07 3.07 1.80-7.70 (K/uL) Final Lymphs, absolute 05/20/2024 09:17:07 1.76 1.00-4.80 (K/ul) Final Monos, Abs 05/20/2024 09:17:07 0.48 0.00-1.10 (K/uL) Final Eos, Abs 05/20/2024 09:17:07 0.13 0.00-0.70 (K/uL) Final Basos, Abs 05/20/2024 09:17:07 0.03 0.00-0.20 (K/uL) Final Performing Location [facility] [place] [address]
--- OUTSIDE RECORDS SUMMARY | 2024-06-13 15:42 | External Medical Summary | Summary of Care ---
Author Name Unknown Organization [facility] Address [address] [place] [address] Phone [phone] Care Team Providers Care Marketing Communications Leader Name Role Phone Chandana Abdi MD Primary Care Provider [phone] Encounter Details Date Type Department Care Team (Late st Contact Info) Description 01/20/2024 Orders Only [place] [address] [place] [address] Chandana Abdi MD [address] [place] [address] Allergies Active Allergy Reactions Criticality Noted Date Comments Metformin 05/08/2022 Diarrhea Penicillins Hives Medium 09/02/2012 Perflutren Lipid Microsphere Anaphylaxis,Hives,Itchin g High 01/19/2014 documented as of this encounter (statuses as of 01/20/2024) Medications Medication Sig Dispensed Refills Start Date End Date Status Lisinopril 5 MG Oral Tablet (Prinivil)Indication s:HTN, goal below 140/90 Take 1 Tablet by mouth in the morning. 90 Tablet 3 09/07/2023 Active FLUoxetine HCl 20 MG Oral Capsule (PROzac)Indications: Depression, unspecified depression type Take 1 Capsule by mouth in the morning. 90 Capsule 3 09/07/2023 Active OneTouch Verio w/Device KitIndications:Type 2 diabetes mellitus with hemoglobin A1c goal of less than 7.0% (HCC) Use up to 4 times a day E11.9 1 Kit 09/07/2023 Active OneTouch Verio In Vitro Strip (Glucose Blood)Indications:Ty pe 2 diabetes mellitus with hemoglobin A1c goal of less than 7.0% (HCC) Use up to 4 times a day E11.9 100 Strip 11 09/07/2023 Active BD Pen Needle Mini U/F 31G X 5 MM (Insulin Pen Needle)Indications:T ype 2 diabetes mellitus with hemoglobin A1c goal of less than 7.0% (HCC) USE DIRECTED WITH INSULIN INJECTION E11.9 100 Each 09/07/2023 Active Rosuvastatin Calcium 20 MG Oral Tablet (Crestor)Indications :Dyslipidemia, goal LDL below 70 Take 1 Tablet by mouth in the morning. 90 Tablet 3 10/05/2023 Active Dulaglutide 1.5 MG/0.5ML Subcutaneous Solution Pen-injector (Trulicity)Indicatio ns:Type 2 diabetes mellitus with hemoglobin A1c goal of less than 7.0% (HCC) Inject 1.5 mg under the skin once a week. 6 mL 3 10/07/2023 Active Insulin Glargine Solostar 100 UNIT/ML Subcutaneous Solution Pen-injector (Lantus SoloStar) Inject 10 Units under the skin in the morning. 15 mL 1 10/25/2023 Active metFORMIN HCl ER 500 MG Oral Tablet Extended Release 24 Hour (Glucophage XR)Indications:Type 2 diabetes mellitus with hemoglobin A1c goal of less than 7.0% (HCC) TAKE 1 TABLET BY MOUTH EVERY DAY IN THE MORNING 90 Tablet 1 10/28/2023 Active Cyclobenzaprine HCl 10 MG Oral Tablet (Flexeril) Take 1 Tablet by mouth in the morning and 1 Tablet before bedtime. 01/19/2024 Active documented as of this encounter (statuses as of 01/20/2024) Active Problems Problem Noted Date Diagnosed Date [...] as of this encounter (statuses as of 01/20/2024) Resolved Problems Problem Noted Date Diagnosed Date Resolved Date Body mass index (BMI) of 40. 0 to 44.9 in adult 05/31/2017 07/16/2022 Overview: Per Obesity protocol #1 documented as of this encounter (statuses as of 01/20/2024) Immunizations Name Administration Dates Next Due COVID-19 mRNA, LNP-s, No Pre serve, 2-Dose Series (Moderna) 02/22/2021,01/25/2021 Pneumococcal Conjugate Vacci ne, 20-valent ([id number]) 06/11/2022 Pneumococcal Polysaccharide PPV23 (Pneumovax) 01/11/2014 Seasonal Influenza, PF, 6 M & above, IM , (FluLaval or Fluzone) 10/05/2023,05/08/2022,07/03/2019 07/03/2020 Seasonal Influenza, Quadriva lent, No Preserve, IM 10/16/2016 Seasonal Influenza, Split, I IV3, With Preserve, Inj 09/02/2012 TDAP (age 10 and older)(Boostrix) 10/05/2023, [...] money to get more. Never true 09/06/2023 Sex and Gender Information Value Date Recorded Sex Assigned at Male 08/01/2019 3:19 PM EST Gender Identity Male 08/01/2019 3:19 PM EST Sexual Orientation Straight 08/01/2019 3: 19 PM EST Job Start Date Occupation Industry Not on file Not on file Not on file documented as of this encounter Plan of Treatment Health Maintenance Due Date Last Done Comments HIV Screening 1992 Hepatitis C Screening 1995 Hepatitis B (1 of 3 - 19+ 3-dose series) 1996 Diabetic Foot Exam 07/03/2020 07/03/2019, 0 01/04/2018, 11/01/2015, Additional history exists Depression, Most Recent Score >= 10 (will fire each visit until score < 10) 05/09/2022 05/08/2022 Cologuard 2022 Colonoscopy 2022 08/02/2018, 11/2017, 05/05/2013, Additional history exists Colorectal Cancer Screening 2022 Fecal Occult Blood Test 2022 Sigmoidoscopy 2022 COVID-19 Vaccine (2022- season) 2023 02/22/2021, 01/25/2021 HbA1c 07/22/2024 01/20/2024, 08/30, 07/22/2022, Additional history exists Diabetic Eye Exam 09/06/2024 09/06/2023, , 07/07/2023 (Done elsewhere), Additional history exists Albumin/Creatinine Ratio 09/11/2024 024, 01/04/2018, 11/04/2015, Additional history exists GFR 09/11/2024 01/19/2024, 08/30, 07/22/2022, Additional history exists Lipid Panel 09/11/2028 09/11/2023, 04/30, 07/03/2019, Additional history exists DTaP,Tdap,and Td Vaccines (3 - Td or Tdap) 10/05/2033 10/05/2023, 10/21/2012 RETIRED - COLONOSCOPY-ANNUAL AGES 18-100 Discontinued 08/02/2018, 08/02/2018, 05/05/2013, Additional history exists Pneumococcal Vaccine: Pediatrics (0 to 5 Years) and At-Risk Patients (6 to 64 Years) Completed 06/11/2022, 01/11/2014 Influenza Vaccine (FLU shot) Completed 10/05/2023, 05/08/2022, 07/03/2019, Additional history exists GARDASIL-HPV IMMUNIZATION SERIES Aged Out No longer eligible based on patient's age to complete this topic MENINGOCOCCAL (MENACTRA/MENVEO) Aged Out No longer eligible based on patient's age to complete this topic documented as of this encounter Medical Devices Not on filedocumented as of this encounter Procedures Procedure Name Priority Date/Time Associated Diagnosis Comments CHEMISTRY-OUTSIDE Routine 01/19/2024 CT ABD/PELVIS WO IV CONTRAST - W ORAL CONTRAST Routine 01/19/2024 documented in this encounter Results * (ABNORMAL) CHEMISTRY-OUTSIDE (01/19/2024) Not all results display below - see scan for full detail OUTSIDE LAB (SEE SCANNED REPORT) Comment:[facility] ED-CBC,URINALYS IS,CMP,TP,ALB,GLOB,A/G RATIO,ALK PHOS,LIPASE CREATININE-OUTSID E LAB 0.78 0.6 - 1.4 MG/DL OUTSIDE LAB (SEE SCANNED REPORT) EGFR-OUTSIDE LAB 108.3 ML/MIN OUT SIDE LAB (SEE SCANNED REPORT) POTASSIUM-OUTSIDE LAB 4.3 3.5 - 5.1 MMOL OUTSIDE LAB (SEE SCANNED REPORT) GLUCOSE-OUTSIDE LAB 410(A) 70 - 99 MG/DL OUTSIDE LAB (SEE SCANNED REPORT) HOURS FASTING OUTSID E LAB (SEE SCANNED REPORT) TRIGLYCERIDES-OUT SIDE LAB OUTSIDE LAB (SEE SCANNED REPORT) CHOLESTEROL-OUTSI DE LAB OUTSIDE LAB (SEE SCANNED REPORT) HDL-OUTSIDE LAB OUTS FER LAB (SEE SCANNED REPORT) CHOL/HDL RATIO-OUTSIDE LAB OUTSIDE LA B (SEE SCANNED REPORT) LDL (CALCULATED)-OUTS FER LAB OUTSIDE LAB (SEE SCANNED REPORT) LDL (DIRECT MEASURE)-OUTSIDE LAB OUTSIDE LAB (SEE SCANNED REPORT) HEMOGLOBIN, [id number] LAB OUTSIDE LAB (SEE SCANNED REPORT) PHOSPHORUS-OUTSID E LAB OUTSIDE LAB (SEE SCANNED REPORT) PTH-OUTSIDE LAB OUTS FER LAB (SEE SCANNED REPORT) MICROALBUMIN RATIO-OUTSIDE LAB OUTSIDE LA B (SEE SCANNED REPORT) PROTEIN, UA-OUTSIDE LAB OUTSIDE LAB (SEE SCANNED REPORT) HGB 15.4 14 - 18 G/DL OUTSIDE LAB (SEE SCANNED REPORT) 01/19/2024 History Per Patient LABORATORY OUTSIDE LAB (SEE SCANNED REPORT) * CT ABD/PELVIS WO IV CONTRAST - W ORAL CONTRAST (01/19/2024) Anatomical Region Laterality Modality Body, Abdomen, Pelvis Other 01/19/2024 Jessica Jackson PA-C RAD CT documented in this encounter Care Teams Marketing Communications Leader Relationship Specialty Start Date End Date December, Chandana Paez MD [address] [place] [address] PCP - General Family Medicine 09/07/23 documented as of this encounter
--- OUTSIDE RECORDS SUMMARY | 2024-06-13 15:42 | External Medical Summary | Summary of Care ---
Author Name Unknown Organization [facility] Address [address] [place] [address] Phone [phone] Care Team Providers Care Inventory And Pricing Associate Name Role Phone Chandana Abdi MD Primary Care Provider [phone] Encounter Details Date Type Department Care Team (Late st Contact Info) Description 02/08/2024 Orders Only [facility] [address] [place] [address] Chandana Abdi MD [address] [place] [address] Allergies Active Allergy Reactions Criticality Noted Date Comments Metformin 05/08/2022 Diarrhea Penicillins Hives Medium 09/02/2012 Perflutren Lipid Microsphere Anaphylaxis,Hives,Itchin g High 01/19/2014 documented as of this encounter (statuses as of 02/08/2024) Medications Medication Sig Dispensed Refills Start Date [...] as of this encounter (statuses as of 02/08/2024) Active Problems Problem Noted Date Diagnosed Date [...] as of this encounter (statuses as of 02/08/2024) Resolved Problems Problem Noted Date Diagnosed Date Resolved Date Body mass index (BMI) of 40. 0 to 44.9 in adult 05/31/2017 07/16/2022 Overview: Per Obesity protocol #1 documented as of this encounter (statuses as of 02/08/2024) Immunizations Name Administration Dates Next Due COVID-19 mRNA, LNP-s, No Pre serve, 2-Dose Series (Moderna) 02/22/2021,01/25/2021 Pneumococcal Conjugate Vacci ne, 20-valent ([id number]) 06/11/2022 Pneumococcal Polysaccharide PPV23 (Pneumovax) 01/11/2014 Seasonal [...] history exists Cologuard 2022 Colonoscopy 2022 08/02/2018, 11/2017, 05/05/2013, Additional history exists Colorectal Cancer Screening 2022 Fecal Occult Blood Test 2022 Sigmoidoscopy 2022 COVID-19 Vaccine ( season) 2023 02/22/2021, 01/25/2021 Depression Monitoring 05/08/2023 05/08/2022 HbA1c 07/22/2024 01/20/2024, 08/30, 07/22/2022, Additional history [...] Procedure Name Priority Date/Time Associated Diagnosis Comments DIABETIC EYE EXAM Routine 01/27/2024 documented in this encounter Results * DIABETIC EYE EXAM (01/27/2024) 01/27/2024 History Per Patient OTHER OUTSIDE LAB (SEE SCANNED REPORT) documented in this encounter Care Teams Inventory And Pricing Associate Relationship Specialty Start Date End Date December, Chandana Paez MD [address] [place] [address] PCP - General Family Medicine 09/07/23 documented as of this encounter
--- OUTSIDE RECORDS SUMMARY | 2024-06-13 15:42 | External Medical Summary | Summary of Care ---
Author Name Unknown Organization [facility] Address [address] [place] [address] Phone [phone] Care Team Providers Care Disability Attorney Name Role Phone Chandana Abdi MD Primary Care Provider [phone] Reason for Visit * Reason Onset Date Comments MyCode Nonconsent - Not interested at this time 01/20/2024 Encounter Details Date Type Department Care Team (Late st Contact Info) Description 01/20/2024 Orders Only [facility] [address] [place], [place] [id number] Laly Trejo CHRA MyCode Nonconsent Documentation Allergies Active Allergy Reactions Criticality Noted Date [...] (Moderna) 02/22/2021,01/25/2021 Pneumococcal Conjugate Vacci ne, 20-valent ([id number]) 06/11/2022 Pneumococcal Polysaccharide PPV23 (Pneumovax) 01/11/2014 Seasonal [...] on file documented as of this encounter Progress Notes * Laly Trejo CHRA - 01/20/2024 8:52 AM EDT MyCode Nonconsent Documentation Philippe Donovan was approached in the clinic regarding participation in the MyCode Project and did not consent. documented in this encounter Plan of Treatment Health Maintenance Due Date Last Done Comments HIV Screening 1992 Hepatitis C Screening 1995 Hepatitis B (1 of 3 - 19+ 3-dose series) 1996 Diabetic Foot Exam 07/03/2020 07/03/2019, 0 01/04/2018, 11/01/2015, Additional history exists Depression, Most Recent Score >= 10 (will fire each visit until score < 10) 05/09/2022 05/08/2022 Cologuard 2022 Colonoscopy 2022 08/02/2018, 1211/2017, 05/05/2013, Additional history exists Colorectal Cancer Screening 2022 Fecal Occult Blood Test 2022 Sigmoidoscopy 2022 COVID-19 Vaccine ( season) 2023 02/22/2021, 01/25/2021 HbA1c 03/11/2024 09/11/2023, 07/01, 05/11/2022, Additional history exists Diabetic Eye Exam 09/06/2024 09/06/2023, , 07/07/2023 (Done elsewhere), Additional history exists Albumin/Creatinine Ratio 09/11/2024 024, 01/04/2018, 11/04/2015, Additional history exists GFR 09/11/2024 09/11/2023, 07/01, 05/11/2022, Additional history exists Lipid Panel 09/11/2028 09/11/2023, [...] filedocumented as of this encounter Care Teams Disability Attorney Relationship Specialty Start Date End Date December, Chandana Paez MD [address] [place] [address] PCP - General Family Medicine 09/07/23 documented as of this encounter
--- OUTSIDE RECORDS SUMMARY | 2024-06-13 15:42 | External Medical Summary | Summary of Care ---
Author Name Unknown Organization [facility] Address [address] [place] [address] Phone [phone] Care Team Providers Care Clip Baker Name Role Phone Chandana Abdi MD Primary Care Provider [phone] Reason for Visit * Reason Comments Outpatient Testing Encounter Details Date Type Department Care Team (Late st Contact Info) Description 01/20/2024 7:40 AM EDT Laboratory Laboratory, [facility] [address] [place] [id number] [facility] [address] [place] [address] Type 2 diabetes mellitus with hemoglobin A1c goal of less than 7.0% ([facility]) Allergies Active Allergy Reactions Criticality Noted Date [...] (Moderna) 02/22/2021,01/25/2021 Pneumococcal Conjugate Vacci ne, 20-valent ([id number]) 06/11/2022 Pneumococcal Polysaccharide PPV23 (Pneumovax) 01/11/2014 Seasonal [...] as of this encounter Plan of Treatment Pending Results Name Type Priority Associated Diagnoses Date /Time HEMOGLOBIN A1C Lab Routine Type 2 diabetes mellitus with hemoglobin A1c goal of less than 7.0% (HCC) 01/20/2024 8:48 AM EDT Health Maintenance Due Date Last Done Comments HIV Screening 1992 Hepatitis C Screening 1995 Hepatitis B (1 of 3 - 19+ 3-dose series) 1996 Diabetic Foot Exam 07/03/2020 07/03/2019, 0 01/04/2018, 11/01/2015, Additional history exists Depression, Most Recent Score >= 10 (will fire each visit until score < 10) 05/09/2022 05/08/2022 Cologuard 2022 Colonoscopy 2022 08/02/2018, 12/11/2017, 05/05/2013, [...] as of this encounter Visit Diagnoses Diagnosis Type 2 diabetes mellitus with hemoglobin A1c goal of less than 7.0% (HCC) documented in this encounter Care Teams Clip Baker Relationship Specialty Start Date End Date December, Chandana Paez MD [address] [place] [address] PCP - General Family Medicine 09/07/23 documented as of this encounter
--- OUTSIDE RECORDS SUMMARY | 2024-06-13 15:42 | External Medical Summary | Summary of Care ---
Author Name Unknown Organization [facility] Address [address] [place] [address] Phone [phone] Care Team Providers Care Digitizer Name Role Phone Chandana Abdi MD Primary Care Provider [phone] Reason for Referral * Evaluate & Treat - Unlimited Visits (Within 30 days (routine)) - Pending Review Specialty Diagnoses / Procedures Referred By Nilson eller Referred To Contact Physical Therapy / Physical Medicine And Rehab Diagnoses Acute right-sided low back pain with right-sided sciatica Eleanor Anderson CRNP [address] [place] [address] Referral ID Status Reason Start Date Expiration Date Visits Requested Visits Authorized [id number] Pending Review Specialty Services Required 01/20/[phone] Question Answer Referral Priority Within 30 days (routine) Where should this appointment be scheduled? [facility] Reason for Visit * Reason Comments Acute Pt being seen for lo wer back pain and sharp pain in Rt side in hip area, was seen at ER on Wednesday. The pain began yesterday and going into leg. Encounter Details Date Type Department Care Team (Late st Contact Info) Description 01/20/2024 8:20 AM EDT Office Visit Family Practice [facility] [address] [place] [address] Eleanor Anderson CRNP [address] [place] [address] Acute right-sided low back pain with right-sided sciatica*; Type 2 diabetes mellitus with hemoglobin A1c goal of less than 7.0% (HCC) Allergies Active Allergy Reactions Criticality Noted Date [...] (Moderna) 02/22/2021,01/25/2021 Pneumococcal Conjugate Vacci ne, 20-valent ([id number]) 06/11/2022 Pneumococcal Polysaccharide PPV23 (Pneumovax) 01/11/2014 Seasonal [...] Passive Smoke Exposure: Never Smokeless Tobacco: Never Tobacco Cessation:Counseling Given: Not Answered Alcohol Use Standard Drinks/Week Comments No 0 [...] Sign Reading Time Taken Comments Blood Pressure 144/68 01/20/2024 8:09 AM EDT Pulse 77 01/20/2024 8:09 AM EDT Temperature 36.4 C (97.5 F) 01/20/2024 8:09 AM ED T Respiratory Rate 16 01/20/2024 8:09 AM EDT Oxygen Saturation - - Inhaled Oxygen Concentration - - Weight 120.2 kg (265 lb) 01/20/2024 8:09 AM EDT Height - - Body Mass Index 40.29 09/07/2023 2:52 PM EST documented in this encounter Progress Notes * Eleanor Anderson CRNP - 01/20/2024 8:20 AM EDT Images from the original note were not included. Follow up Family Medicine Visit History of Present Illness Philippe Donovan is a pleasant 48 year old male with PMH listed below presenting with ER f/u. Low back pain x 3 day without injury ER 01/19/[address]/Spine CT - unremarkable Given toradol and lidocaine patch, and pain is manageable Pain is worse when standing up or moving certain direction. Sometimes down in right leg. Notes that his blood sugar was elevated to 400 in ER and he is due for updated A1C. Social History Socioeconomic History Marital status: Spouse name: Not on file Number of children: Not on file Years of education: Not on file Highest education level: Not on file Occupational History Not on file Tobacco Use Smoking status: Never Passive exposure: Never Smokeless tobacco: Never Substance and Sexual Activity Alcohol use: No Drug use: No Sexual activity: Not on file Other Topics Concern Not on file Social History Narrative Not on file Social Determinants of Health Financial Resource Strain: Not on file Food Insecurity: No Food Insecurity (09/06/2023) Hunger Vital Sign Worried About Running Out of Food in the Last Year: Never true Ran Out of Food in the Last Year: Never true Transportation Needs: Not on file Physical Activity: Not on file Stress: Not on file Social Connections: Not on file Intimate Partner Violence: Not on file Housing Stability: Not on file PMH: Past Medical History: Diagnosis Date Celiac disease DM type 2, goal A1c below 7 Past Surgical History: Procedure Laterality Date COLONOSCOPY, DIAGNOSTIC (RECTUM) 05/05/2013 COLONOSCOPY FLEXIBLE PROXIMAL DIAGNOSTIC performed by David Resendiz MD at ENDOSCOPY [facility] COLONOSCOPY, DIAGNOSTIC (RECTUM) 08/02/2018 adenomatous polyp, diverticulosis, poor prep, repeat 1 yr/COLONOSCOPY FLEXIBLE PROXIMAL DIAGNOSTIC performed by David Resendiz MD at [facility]OSCOPY [facility] EGD, FLEXIBLE, DIAGNOSTIC 08/02/2018 gastritis/ESOPHAGOGASTRODUODENOSCOPY (EGD), FLEXIBLE, TRANSORAL, DIAGNOSTIC performed by David Resendiz MD at ENDOSCOPY [facility] Current Outpatient Medications Medication Sig Dispense Refill Cyclobenzaprine HCl 10 MG Oral Tablet (Flexeril) Take 1 Tablet by mouth in the morning and 1 Tabletbefore bedtime. metFORMIN HCl ER 500 MG Oral Tablet Extended Release 24 Hour (Glucophage XR) TAKE 1 TABLET BY MOUTHEVERY DAY IN THE MORNING 90 Tablet 1 Insulin Glargine Solostar 100 UNIT/ML Subcutaneous Solution Pen-injector (Lantus SoloStar) Inject 10 Units under the skin in the morning. 15 mL 1 Dulaglutide 1.5 MG/0.5ML Subcutaneous Solution Pen-injector (Trulicity) Inject 1.5 mg under the skin once a week. 6 mL 3 Rosuvastatin Calcium 20 MG Oral Tablet (Crestor) Take 1 Tablet by mouth in the morning. 90 Tablet 3 BD Pen Needle Mini U/F 31G X 5 MM (Insulin Pen Needle) USE DIRECTED WITH INSULIN INJECTION E11.9100 Each 0 FLUoxetine HCl 20 MG Oral Capsule (PROzac) Take 1 Capsule by mouth in the morning. 90 Capsule 3 Lisinopril 5 MG Oral Tablet (Prinivil) Take 1 Tablet by mouth in the morning. 90 Tablet 3 OneTouch Verio In Vitro Strip (Glucose Blood) Use up to 4 times a day E11.9 100 Strip 11 OneTouch Verio w/Device Kit Use up to 4 times a day E11.9 1 Kit 0 No current facility-administered medications for this visit. Review of patient's allergies indicates: Allergen Reactions Perflutren Lipid Microsphere Anaphylaxis, Hives and Itching Penicillins Hives Metformin Diarrhea Most Recent Immunizations Administered Date(s) Administered COVID-19 mRNA, LNP-s, No Preserve, 2-Dose Series (Moderna) 02/22/2021 Pneumococcal Conjugate Vaccine, 20-valent ([id number]) 06/11/2022 Pneumococcal Polysaccharide PPV23 (Pneumovax) 01/11/2014 Seasonal Influenza, PF, 6 M & above, IM , (FluLaval or Fluzone) 10/05/2023 Seasonal Influenza, Quadrivalent, No Preserve, IM 10/16/2016 Seasonal Influenza, Split, IIV3, With Preserve, Inj 09/02/2012 TDAP (age 10 and older)(Boostrix) 10/05/2023 Review of Systems: Physical Exam BP 144/68 | Pulse 77 | Temp 36.4 C (97.5 F) (Tympanic) | Resp 16 | Wt 120.2 kg (265 lb) | BMI 40.29 kg/m | BSA 2.4 m Physical Exam Constitutional: Appearance: Normal appearance. HENT: Head: Normocephalic. Pulmonary: Effort: No respiratory distress. Musculoskeletal: Cervical back: Neck supple. Lumbar back: Tenderness present. Negative right straight leg raise test and negative left straight leg raise test. Left lower leg: No tenderness. Comments: 5/5 strength and normal sensation bilateral lower extremities. Patellar reflexes intact bilaterally. Skin: General: Skin is warm. Neurological: Mental Status: He is alert and oriented to person, place, and time. Psychiatric: Mood and Affect: Mood normal. Assessment and Plan 1. 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 Type 2 diabetes mellitus with hemoglobin A1c goal of less than 7.0% (HCC) Uncontrolled Repeat A1C today, f/u with pcp for med management Wrap-Up I have advised the patient to call our office with any worsening or new symptoms. I spent a total of 20-29 minutes (exact time 20 mins) on the date of service in preparation, delivery, and documentation of the care provided to Philippe Donovan excluding any time spent in the performanceof separately billed services. Eleanor Anderson, MSN, [employer] [facility] documented in this encounter Plan of Treatment Scheduled Referrals Name Type Priority Associated Diagnoses Orde r Schedule PHYSICAL THERAPY REFERRAL OP Referral Within 30 days (routine) Acute right-sided low back pain with right-sided sciatica Ordered: 01/20/2024 Health Maintenance Due Date Last Done Comments [...] as of this encounter Visit Diagnoses Diagnosis Acute right-sided low back pain with right-sided sciatica- Primary Type 2 diabetes mellitus with hemoglobin A1c goal of less than 7.0% (HCC) documented in this encounter Care Teams Digitizer Relationship Specialty Start Date End Date December, Chandana Paez MD [address] [place] [facility] [place] [address] PCP - General Family Medicine 09/07/23 documented as of this encounter"
--- OUTSIDE RECORDS SUMMARY | 2024-06-13 15:42 | External Medical Summary ---
Author Name Unknown Address Unknown Organization [id number]:[facility] [place] - [address] [place] [address] Laboratory Report Ordering Provider Test Date Status 01/20/2024 08:48:33 Final Observation Date Value Abnormality Reference (Units ) Status HbA1C 01/20/2024 08:48:33 13.2 Above high normal 4. 0-5.6 (%) Final The use of HbA1c to monitor glycemic status is based on normal hemoglobin and HbA composition. This test should not be used in patients with abnormal hemoglobin that affects the half life of the red blood cell or the in vivo glycation rates. Glucose, estimated average 01/20/2024 08:48:33 332 Above high normal <126 (mg/dL) Mat joaquin Performing Location [facility] [place] - [address] [place] [address]
--- OUTSIDE RECORDS SUMMARY | 2024-06-13 15:42 | External Medical Summary | Summary of Care ---
Author Name Unknown Organization [facility] Address [address] [place] [address] Phone [phone] Care Team Providers Care Abrasive Mixer Name Role Phone Chandana Abdi MD Primary Care Provider [phone] Encounter Details Date Type Department Care Team (Late st Contact Info) Description 01/19/2024 Result Scan Unspecified Department <No scans attached> Allergies Active Allergy Reactions Criticality Noted Date [...] 7.0% ([facility]) Inject 1.5 mg under the skin once [...] THE MORNING 90 Tablet 1 10/28/2023 Active documented as of this encounter (statuses [...] (Moderna) 02/22/2021,01/25/2021 Pneumococcal Conjugate Vacci ne, 20-valent ([id number]) 06/11/2022 Pneumococcal Polysaccharide PPV23 (Pneumovax) 01/11/2014 Seasonal [...] Vaccine ( season) 2023 02/22/2021, 01/25/2021 HbA1c 07/22/2024 01/20/2024, [...] Procedure Name Priority Date/Time Associated Diagnosis Comments RADIOLOGY SCANNED RESULT 01/19/2024 documented in this encounter Results * RADIOLOGY SCANNED RESULT (01/19/2024) 01/19/2024 No Physician Data Unknown DIAGNOSTIC RAD IOLOGY SERVICES documented in this encounter Care Teams Abrasive Mixer Relationship Specialty Start Date End Date December, Chandana Paez MD [address] [place] [address] PCP - General Family Medicine 09/07/23 documented as of this encounter
[2024-06-13] MEDS ORDERED: Nursing to Pharmacy Communication SCH (16:00)
[2024-06-13] MEDS: lisinopril 5 MG TAB PO SCH (16:02)
[2024-06-13] MEDS ORDERED: PHARMACY GLYCEMIC MGMT CONSULT PRN (16:06)
--- NOTE | 2024-06-13 16:20 | Electrocardiogram Report ---
Test Reason : Blood Pressure : */* mmHG Vent. Rate : 80 BPM Atrial Rate : 80 BPM P-R Int : 188 ms QRS Dur : 94 ms QT Int : 374 ms P-R-T Axes : 41 -18 42 degrees QTcB Int : 431 ms Normal sinus rhythm Normal ECG When compared with ECG of 19-Jan-2014 11:35, No significant change Confirmed by Pito Rodriguez ([id number]) on 06/13/2024 4:20:19 PM Referred By: REFERRED SELF Confirmed By: Pito Rodriguez
[2024-06-13] MEDS: INSULIN ASPART PER UNIT CHARGE SC SCH (16:37)
[2024-06-13] MEDS: ICU ELECTROLYTE REPLACEMENT PROTOCOL SCH (16:41)
[2024-06-13] MEDS: GABAPENTIN 300 MG CAP PO SCH (21:36)
[2024-06-14 07:21] LABS: BUN Creatinine Ratio 16.9 (10-20); Calcium 9.1 mg/dl (8.6-10.3); Chol HDL Ratio 4.6 (0-5); Creatinine Clr Calc Pharmacy 133.5 ml/min; Hematocrit (blood only) 41.3 % (42.0-52.0); Hemoglobin 13.8 g/dl (14.0-18.0); Mean Corpuscular Hemoglobin 28.6 pg (25.0-34.0); Mean Corpuscular Hgb Conc 33.4 g/dL (32.0-36.0); Mean Corpuscular Volume 85.5 fL (80.0-100.0); Mean Platelet Volume 8.4 fL (9.4-12.4); Phosphorus 4.6 mg/dl (2.5-4.9); Platelet Count 202 K/uL (130-400); Potassium 4.3 mmol/L (3.5-5.1); RDW Standard Deviation 37.3 fL (36.4-46.3); Red Blood Count 4.83 M/uL (4.70-6.10); White Blood Count 6.86 K/ul (4.8-10.8)
[2024-06-14 07:27] LABS: Troponin I High Sensitivity 6.7 pg/ml (0-20)
[2024-06-14 07:41] LABS: Estimated Average Glucose 283 mg/dl; Hemoglobin A1C 11.5 % (4.5-5.6)
[2024-06-14] MEDS: LANTUS PER UNIT CHARGE SC ONE (07:59)
[2024-06-14] MEDS: ATORVASTATIN 40 MG TAB PO SCH (08:00)
[2024-06-14] MEDS: FLUoxetine HCL 20 MG CAP PO SCH (08:00)
--- NOTE | 2024-06-14 08:59 | Critical Care Progress Note ---
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 Initial imaging unrevealing. MRI unremarkable. Gingival bleeding is resolved. Recommendations: 1. Status post TNK administration: Continue to monitor in the ICU for signs of significant bleeding. Follow-up CT scan at 1130 today and if negative the patient can be dismissed from the ICU with ultimate disposition per primary admitting service 2. Gingival bleeding: Resolved 3. Strokelike symptoms: Currently resolved. Await neurology consult. PT and OT evaluations pending. 4. Hypertension: Continue lisinopril 5. Diabetes: Restart metformin today Await follow-up imaging at [address] today and if the CT of the head shows no hemorrhage the patient can be dismissed from the ICU which point in time. Will sign off. Disposition management per primary admitting service Admission and Anticipated Discharge Date Admission Date: June 13, 2024 Subjective Patient seen and examined. EMR reviewed. Discussed with bedside critical care nurse. Patient is awake alert and conversant. His NIH is 0. All of his neurological complaints have resolved. The gingival bleeding is resolved. He is tolerating a diet. He has no complaints this morning. Review of Systems Review of Systems: All systems reviewed & are unremarkable except as noted in Subjective Physical Exam Constitutional: WD/WN, vitals as above Neck: trachea midline, no thyromegaly Respiratory: normal respiratory effort, lungs clear to auscultation Cardiovascular: RRR, no murmur, no edema Gastrointestinal (Abdomen): normal bowel sounds, soft, nontender, no hepatosplenomegaly Musculoskeletal: Extremities: extremities normal to inspection Skin: no rashes, warm and dry Lymphatic: no cervical lymphadenopathy Results & Data Results & Data Vital Signs (Past 12 Hours) Vital Signs Temp Pulse Resp BP Pulse Ox 06/14/24 08:00 36.5 C 06/14/24 08:00 80 06/14/24 06:09 74 0 L 93 06/14/24 06:00 129/76 06/14/24 06:00 129/76 06/14/24 05:54 76 5 L 94 06/14/24 05:45 74 0 L 89 L 06/14/24 05:09 76 12 91 06/14/24 05:00 126/69 06/14/24 04:51 77 0 L 91 06/14/24 04:33 76 0 L 91 06/14/24 04:30 114/66 06/14/24 04:30 114/66 06/14/24 04:15 79 7 L 93 06/14/24 04:00 79 15 96 06/14/24 04:00 138/75 06/14/24 04:00 138/75 06/14/24 04:00 138/75 06/14/24 04:00 36.8 C 06/14/24 03:30 123/67 06/14/24 03:30 70 6 L 100 06/14/24 03:00 124/52 L 06/14/24 03:00 124/52 L 06/14/24 03:00 124/52 L 06/14/24 02:57 69 6 L 95 06/14/24 02:30 118/52 L 06/14/24 02:30 118/52 L 06/14/24 02:30 118/52 L 06/14/24 02:30 70 8 L 98 06/14/24 02:12 70 7 L 98 06/14/24 02:01 121/56 L 06/14/24 02:01 121/56 L 06/14/24 01:57 72 13 99 06/14/24 01:33 72 14 96 06/14/24 01:30 97/52 L 06/14/24 01:30 97/52 L 06/14/24 01:15 72 14 98 06/14/24 01:09 70 7 L 96 06/14/24 01:07 96/44 L 06/14/24 01:07 96/44 L 06/14/24 01:07 96/44 L 06/14/24 01:07 96/44 L 06/14/24 01:07 96/44 L 06/14/24 01:00 77 18 93 06/14/24 00:48 75 18 94 06/14/24 00:42 76 17 94 06/14/24 00:00 36.9 C 06/14/24 00:00 79 06/13/24 23:54 78 17 94 06/13/24 23:39 80 19 94 06/13/24 23:30 114/57 L 06/13/24 23:30 114/57 L 06/13/24 23:30 114/57 L 06/13/24 23:09 81 12 96 06/13/24 23:00 100/54 L 06/13/24 23:00 100/54 L 06/13/24 23:00 79 12 98 06/13/24 22:48 78 7 L 97 06/13/24 22:36 80 19 97 06/13/24 22:30 112/60 06/13/24 22:25 114/69 06/13/24 22:24 93 H 22 98 06/13/24 21:54 77 10 L 97 06/13/24 21:30 113/58 L 06/13/24 21:21 77 12 95 06/13/24 21:15 77 12 97 06/13/24 21:06 79 10 L 96 06/13/24 21:00 101/57 L Critical Care Results & Data Vital Signs (Past 12 Hours) Vital Signs Temp Pulse Resp BP Pulse Ox 06/14/24 08:00 36.5 C 06/14/24 08:00 80 06/14/24 06:09 74 0 L 93 06/14/24 06:00 129/76 06/14/24 06:00 129/76 06/14/24 05:54 76 5 L 94 06/14/24 05:45 74 0 L 89 L 06/14/24 05:09 76 12 91 06/14/24 05:00 126/69 06/14/24 04:51 77 0 L 91 06/14/24 04:33 76 0 L 91 06/14/24 04:30 114/66 06/14/24 04:30 114/66 06/14/24 04:15 79 7 L 93 06/14/24 04:00 79 15 96 06/14/24 04:00 138/75 06/14/24 04:00 138/75 06/14/24 04:00 138/75 06/14/24 04:00 36.8 C 06/14/24 03:30 123/67 06/14/24 03:30 70 6 L 100 06/14/24 03:00 124/52 L 06/14/24 03:00 124/52 L 06/14/24 03:00 124/52 L 06/14/24 02:57 69 6 L 95 06/14/24 02:30 118/52 L 06/14/24 02:30 118/52 L 06/14/24 02:30 118/52 L 06/14/24 02:30 70 8 L 98 06/14/24 02:12 70 7 L 98 06/14/24 02:01 121/56 L 06/14/24 02:01 121/56 L 06/14/24 01:57 72 13 99 06/14/24 01:33 72 14 96 06/14/24 01:30 97/52 L 06/14/24 01:30 97/52 L 06/14/24 01:15 72 14 98 06/14/24 01:09 70 7 L 96 06/14/24 01:07 96/44 L 06/14/24 01:07 96/44 L 06/14/24 01:07 96/44 L 06/14/24 01:07 96/44 L 06/14/24 01:07 96/44 L 06/14/24 01:00 77 18 93 06/14/24 00:48 75 18 94 06/14/24 00:42 76 17 94 06/14/24 00:00 36.9 C 06/14/24 00:00 79 06/13/24 23:54 78 17 94 06/13/24 23:39 80 19 94 06/13/24 23:30 114/57 L 06/13/24 23:30 114/57 L 06/13/24 23:30 114/57 L 06/13/24 23:09 81 12 96 06/13/24 23:00 100/54 L 06/13/24 23:00 100/54 L 06/13/24 23:00 79 12 98 06/13/24 22:48 78 7 L 97 06/13/24 22:36 80 19 97 06/13/24 22:30 112/60 06/13/24 22:25 114/69 06/13/24 22:24 93 H 22 98 06/13/24 21:54 77 10 L 97 06/13/24 21:30 113/58 L 06/13/24 21:21 77 12 95 06/13/24 21:15 77 12 97 06/13/24 21:06 79 10 L 96 06/13/24 21:00 101/57 L Lab & Micro Results (Past 24 Hours) RBC 4.83 M/uL (4.70-6.10) 06/14/24 WBC 6.86 K/ul (4.8-10.8) 06/14/24 Hgb 13.8 g/dl (14.0-18.0) L 06/14/24 Hct 41.3 % (42.0-52.0) L 06/14/24 MCV 85.5 fL (80.0-100.0) 06/14/24 MCH 28.6 pg (25.0-34.0) 06/14/24 MCHC 33.4 g/dL (32.0-36.0) 06/14/24 RDW Standard Deviation 37.3 fL (36.4-46.3) 06/14/24 RDW Coefficient of Variation 12.0 % (11.5-14.5) 06/14/24 Plt Count 202 K/uL (130-400) 06/14/24 MPV 8.4 fL (9.4-12.4) L 06/14/24 Neutrophils (%) (Auto) 57.5 % 06/13/24 Lymphocytes (%) (Auto) 32.4 % 06/13/24 Monocytes # (Auto) 0.43 K/uL (0.11-0.59) 06/13/24 Eosinophils # (Auto) 0.16 K/uL (0.00-0.50) 06/13/24 Immature Granulocyte % (Auto) 0.4 % 06/13/24 Neutrophils # (Auto) 3.86 K/uL (1.40-6.50) 06/13/24 Lymphocytes # (Auto) 2.18 K/uL (1.20-3.40) 06/13/24 Monocytes # (Auto) 0.43 K/uL (0.11-0.59) 06/13/24 Eosinophils # (Auto) 0.16 K/uL (0.00-0.50) 06/13/24 Basophils # (Auto) 0.06 K/uL (0.00-0.20) 06/13/24 Immature Granulocyte # (Auto) 0.03 K/uL (0.01-0.20) 4 Na 142 mmol/L (136-145) 06/14/24 K 4.3 mmol/L (3.5-5.1) 06/14/24 Cl 105 mmol/L (98-107) 06/14/24 CO2 30 mmol/L (21-32) 06/14/24 Anion Gap 7 (3-11) 06/14/24 BUN 14 mg/dl (6-23) 06/14/24 Creatinine 0.83 mg/dl (0.6-1.4) 06/14/24 BUN/Creatinine Ratio 16.9 (10-20) 06/14/24 Glu 153 mg/dl (70-99(Fasting)) H 06/14/24 Ca 9.1 mg/dl (8.6-10.3) 06/14/24 Phosphorus Level 4.6 mg/dl (2.5-4.9) 06/14/24 Total Bilirubin 0.4 mg/dl (0.2-1.0) 06/13/24 AST 20 U/L (13-39) 06/13/24 ALT 27 U/L (7-52) 06/13/24 Alkaline Phosphatase 57 U/L (34-104) 06/13/24 TP 8.0 gm/dl (6.0-8.3) 06/13/24 Albumin 4.9 gm/dl (3.4-5.0) 06/13/24 Globulin 3.1 gm/dl (2.5-4.0) 06/13/24 Albumin/Globulin Ratio 1.6 (0.9-2) 06/13/24 Mg 2.0 mg/dl (1.7-2.4) 06/14/24 06:40 Calcium Level 9.1 mg/dl (8.6-10.3) 06/14/24 06:40 Prothromb Time International Ratio 0.9 (0.9-1.1) 06/13/24 10:2 9 Diagnostic Findings (Past 24 Hours) Chest X-Ray 06/13/24 10:26 XR chest 1V portable CLINICAL HISTORY: neuro deficit, acute stroke suspected TECHNIQUE: Single frontal radiograph of the chest was obtained. Comparison: Comparison is made to chest radiograph 01/10/2014 FINDINGS: No lines and tubes are seen. The cardiomediastinal silhouette is normal. The lungs are clear. No evidence of pleural effusion or pneumothorax. IMPRESSION: No acute chest disease. ACT 112: Negative or not required by law. Electronically signed by: Ramon Pink M.D. 06/13/2024 11:[address] 06/13/24 10:26 CT head/brain wo con CLINICAL HISTORY: neuro deficit, acute stroke suspected Technique: Contiguous axial CT images of the head were acquired from the base of the skull to the vertex without intravenous contrast administration. Images were viewed in brain, subdural and bone windows. Automated dose lowering techniques and/or adjustment according to patient size were utilized for this exam. Comparison: None available at the time of this dictation. Findings: The ventricles, basal cisterns, and cerebral sulci are normal. There is no acute intracranial hemorrhage or evidence of acute territorial infarction. Neither mass effect, shift of the midline structures, nor abnormal extra-axial fluid collections are shown. Soft tissue thickening seen in the sinuses most prominently in the bilateral maxillary sinuses. The orbits appear normal. There are no acute fractures of the calvaria or scalp swelling. Impression: No acute intracranial hemorrhage, no evidence of acute territorial infarction or other acute intracranial disease process. ACT 112: Negative or not required by law. Electronically signed by: Ramon Pink M.D. 06/13/2024 10:49 AM Head CTA 06/13/24 10:26 CT ANGIOGRAM OF THE BRAIN CLINICAL HISTORY: Neurological deficit. Stroke like symptoms. Left-sided weakness. COMPARISON STUDY: Unenhanced CT of the brain performed concurrently on 06/13/2024. TECHNIQUE: Following the IV administration of 119 cc of Optiray 320, CT angiogram of the brain was performed from the skull base to the vertex. Images are reviewed in the axial, sagittal, and coronal planes. 3-D MIPS images are created and assessed. IV contrast was administered without complication. A dose lowering technique was utilized adhering to the principles of ALARA. CT DOSE: 1392.18 mGy.cm FINDINGS: Brain parenchyma: The brain parenchyma is normal in appearance. There is no evidence of hemorrhage, mass effect, or acute territorial ischemia noting jaqueline ographic phase technique. There is no evidence of enhancing mass lesion on the angiogram phase images. No extra-axial fluid collection is seen. Anand-white matter differentiation is preserved. Ventricles, sulci, and cisterns: Normal in configuration. CT angiogram of the brain: There is mild atherosclerotic calcification of the cavernous carotid arteries. The internal carotid arteries are widely patent, as are the anterior and middle cerebral arteries. The vertebrobasilar system and posterior cerebral arteries are widely patent. The right vertebral artery is dominant. There is no aneurysm, high-grade stenosis, or focal vessel cutoff identified throughout the intracranial circulation. Dural sinuses: Clear as visualized. Orbits: The bony orbits are intact. The orbital contents are normal as visualized. Sinuses and mastoids: There is moderate mucosal thickening in the left maxillary antrum. Mild mucosal thickening is seen on the right. The remaining paranasal sinuses are clear. There are bilateral mastoid effusions. Calvarium: Unremarkable. IMPRESSION: 1. There is no evidence of hemorrhage, mass effect, or acute territorial ischemia noting angiographic phase technique. 2. Unremarkable CT angiogram of the brain. ACT 112: Negative or not required by law. Electronically signed by: Tima White M.D. 06/13/2024 10:53 AM Neck CTA 06/13/24 10:26 CT ANGIOGRAPHY OF THE NECK WITH CONTRAST CLINICAL HISTORY: neuro deficit, acute stroke suspected COMPARISON STUDY: No previous studies for comparison. Technique: CT angiography of the carotid and vertebral arteries was obtained using Optiray and 3D reconstruction on an independent workstation. NASCET criteria was utilized. Automated exposure control was utilized for the study. A dose lowering technique was utilized adhering to the principles of ALARA. Findings: Visualized portions of the lung apices are unremarkable. There is no cervical lymphadenopathy. No cervical spine fractures are noted. There is moderate polypoid mucosal thickening of the left maxillary sinus, partially imaged on this exam. There is an apparent periapical lucency of the left first maxillary molar, partially imaged. There is mild calcified and noncalcified atherosclerotic plaque of the bilateral carotid bifurcations without stenosis. There is no aneurysm or dissection within the neck. The right vertebral artery is dominant and patent. There is moderate to severe stenosis at the origin of the left vertebral artery. IMPRESSION: 1. 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 Dominant, patent right vertebral artery. 2. Mild plaque within the bilateral carotid bifurcations without stenosis within the bilateral common carotid or cervical internal carotid arteries. ACT 112: Negative or not required by law. Electronically signed by: Sarthak Means M.D. 06/13/2024 10:55 AM Brain MRI 06/13/24 12:33 MRI OF THE BRAIN COMBO CLINICAL HISTORY: Strokelike symptoms. Left upper extremity tingling and numbness. COMPARISON STUDY: CT of the brain performed the same date 06/13/2024. TECHNIQUE: MRI of the brain was performed utilizing various T1 and T2-weighted sequences in the axial, sagittal, and coronal planes. Contrast-enhanced sequences were acquired following the administration of 12 cc of Gadavist. FINDINGS: Brain parenchyma: There is minimal microangiopathic change. There is no hemorrhage or mass effect. There is no restricted diffusion to suggest acute ischemia. No enhancing mass lesion is identified on the postcontrast images. Anand-white matter differentiation is preserved. No extra-axial fluid collection is seen. The cerebellar tonsils are normal in configuration. Ventricles, sulci, and cisterns: Normal in configuration. Pituitary and sella: Unremarkable. Intracranial vasculature: Normal flow voids are maintained at the skull base. Orbits: The bony orbits are grossly intact. Orbital contents are normal in appearance. Sinuses and mastoids: There are bilateral mastoid effusions. Minor mucosal thickening is noted in the left maxillary sinus, with mild mucosal thickening seen on the right. Calvarium: Unremarkable. Cervical cord: Partially visualized cervical spinal cord is normal in morphology and signal intensity. IMPRESSION: No acute intracranial abnormality. ACT 112: Negative or not required by law. Electronically signed by: Tima White M.D. 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
[2024-06-14] MEDS ORDERED: metFORMIN HCL ER 500 MG TABCR PO SCH (09:15)
--- NOTE | 2024-06-14 10:38 | Hospitalist Progress Note ---
Date of Service June 14, 2024 Assessment & Plan (1) Stroke-like symptoms: Plan Philippe Donovan is a 49y/o M with PMHx significant for DM type II, diabetic peripheral neuropathy, hyperlipidemia, HTN, vitamin D deficiency, depression and celiac disease who presented to the ED for evaluation of stroke-like symptoms. 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 He was subsequently made a stroke alert on arrival to the ED. Patient was seen and evaluated by the telestroke neurologist from [facility]. Decision was ultimately made to administer TNK. TNK was administered at 11:27 AM. Patient reports that his symptoms are now significantly improved following TNK administration. His gums however did start to bleeding after receiving TNK. Stroke-Like Symptoms S/P TNK Administration: History as per above. Head CT was negative. Head CTA revealed mild atherosclerotic calcification of the cavernous carotid arteries but was otherwise unremarkable. Neck CTA showed moderate to severe stenosis at the origin of the left vertebral artery and mild plaque within the bilateral carotid bifurcations without stenosis within the bilateral common carotid/cervical internal carotid arteries. Brain MRI without any acute intracranial abnormaliti es. 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 Continue to monitor gingival bleeding with supportive measures. Symptoms have seemed to resolve following TNK administration. Neurology consult pending. No ASA for 24 hours. AM labs to include lipid panel and Hgb A1c. Will start atorvastatin 40mg daily tomorrow morning. PT/OT evaluations pending. Speech therapy evaluation pending. Chest Pain - RESOLVED: Patient was complaining of some nonspecific central chest pain prior to administration of TNK that has now completely resolved. Initial troponin was 5.3 and initial EKG without any overtly acute ischemic changes; however, will continue to trend troponin Q6H x 2 to further ensure no cardiac issues at this point. EKG with chest pain as needed. 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 Patient was quite hypertensive in the 200s/100s in the ED upon arrival. He is now s/p 10mg IV labetalol. His BP subsequently improved to 151/66 at time of admission. mentions that he used to take 5mg lisinopril daily however he has not done so in quite a long time. Will restart lisinopril 5mg daily tomorrow morning. 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 BSG checks ACHS. Most recent Hgb A1c was 12.9% on 05/20/2024. Repeat Hgb A1c in AM. Other Chronic Medical Conditions: Depression, diabetic peripheral neuropathy --> Can continue home medications for these specific conditions. DVT Prophylaxis: SCDs/TEDs for now in setting of TNK administration. Code Status: FULL CODE PCP: Chandana Abdi MD Disposition: Admit to ICU Patient seen in collaboration with Dr. Faith. Please see addendum. I spent a total of 65 minutes coordinating, documenting, and providing care for this patient excluding time spent in the performance of separately billed services. This included personally reviewing all current laboratories and imaging studies, medical reconciliation, outpatient chart review and discussion with specialists. This chart was completed in part utilizing Speech Voice Recognition Software. G rammatical errors, random word insertions, pronoun errors, and incomplete sentences are an occasional consequence of this system due to software limitations, ambient noise, and hardware issues. Any formal questions or concerns about the content, text, or information contained within the body of this dictation should be directly addressed to the provider for clarification. Admission and Anticipated Discharge Date Admission Date: June 13, 2024 Results & Data Results & Data Vital Signs (Past 12 Hours) Vital Signs Temp Pulse Resp BP Pulse Ox 06/14/24 08:00 36.5 C 06/14/24 08:00 80 06/14/24 06:09 74 0 L 93 06/14/24 06:00 129/76 06/14/24 06:00 129/76 06/14/24 05:54 76 5 L 94 06/14/24 05:45 74 0 L 89 L 06/14/24 05:09 76 12 91 06/14/24 05:00 126/69 06/14/24 04:51 77 0 L 91 06/14/24 04:33 76 0 L 91 06/14/24 04:30 114/66 10/16/24 04:30 114/66 06/14/24 04:15 79 7 L 93 06/14/24 04:00 79 15 96 06/14/24 04:00 138/75 06/14/24 04:00 138/75 06/14/24 04:00 138/75 06/14/24 04:00 36.8 C 06/14/24 03:30 123/67 06/14/24 03:30 70 6 L 100 06/14/24 03:00 124/52 L 06/14/24 03:00 124/52 L 06/14/24 03:00 124/52 L 06/14/24 02:57 69 6 L 95 06/14/24 02:30 118/52 L 06/14/24 02:30 118/52 L 06/14/24 02:30 118/52 L 06/14/24 02:30 70 8 L 98 06/14/24 02:12 70 7 L 98 06/14/24 02:01 121/56 L 06/14/24 02:01 121/56 L 06/14/24 01:57 72 13 99 06/14/24 01:33 72 14 96 06/14/24 01:30 97/52 L 06/14/24 01:30 97/52 L 06/14/24 01:15 72 14 98 06/14/24 01:09 70 7 L 96 06/14/24 01:07 96/44 L 06/14/24 01:07 96/44 L 06/14/24 01:07 96/44 L 06/14/24 01:07 96/44 L 06/14/24 01:07 96/44 L 06/14/24 01:00 77 18 93 06/14/24 00:48 75 18 94 06/14/24 00:42 76 17 94 06/14/24 00:00 36.9 C 06/14/24 00:00 79 06/13/24 23:54 78 17 94 06/13/24 23:39 80 19 94 06/13/24 23:30 114/57 L 06/13/24 23:30 114/57 L 06/13/24 23:30 114/57 L 06/13/24 23:09 81 12 96 06/13/24 23:00 100/54 L 06/13/24 23:00 100/54 L 06/13/24 23:00 79 12 98 06/13/24 22:48 78 7 L 97
--- NOTE | 2024-06-14 11:06 | Neurology Consultation ---
Date of Consultation June 14, 2024 Assessment & Plan (1) Stroke-like episode: Differential diagnosis includes acute ischemic stroke alerted by TNK, versus hypertensive encephalopathy MRI of the brain with no acute ischemic infarcts. CTA of the head neck with some atherosclerotic disease no significant stenosis. Echocardiogram with no cardiac source of emboli. Plan Start Plavix 75 mg in addition to aspirin 81 mg and atorvastatin 80 mg for 21 days followed by aspirin 81 mg and continue statins. Recommend a Zio patch on discharge. Risk factor modifications including diabetes and hypertension. - Weight loss was advised. Follow-up with neurology and if needed cardiology as outpatient Telehealth Consultation Telehealth Information Telehealth Information: I performed this visit using a real-time telehealth connection between my location and the patients location ([facility]). After connecting through interactive tele-video, patient was identified by name and date of and/or wristband check.Patient (or authorized healthcare billing representative) was informed that this was a telemedicine visit and it was being conducted confidentially over secure lines. My office door was closed and no one else was present in the room with me.Patient (or authorized healthcare billing representative) provided consent to proceed with the visit, expressed an understanding of privacy and security of the telemedicine visit, and gave permission to have a hospital billing representative in the room in order to assist with the visit and to conduct portions of the visit, as needed. I informed the patient (or authorized healthcare billing representative) that I reviewed their record and presented the opportunity for them to ask any questions regarding the visit today. The patient agreed to participate. History of Present Illness Reason for Consultation: Acute ischemic stroke Requesting Physician: Ashlyn Valladares MD Attending Physician: Ashlyn Valladares MD History of Present Illness Mr. 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 With resolution of his symptoms. He was noted to be hypertensive. As well when asked about any chest pain he reports mild burning chest pain associated with the event. He denies any blurring of vision ,any slurred speech, any difficulties with gait, any confusion. He denies any recent illnesses. Denies any prior history of similar symptoms or chest palpitations. Allergies Allergy/AdvReac Type Severity Reaction Status Date / Time Penicillins Allergy Unknown Unknown Verified 10/30/19 23:45 Home Medications Medication Instructions Recorded Confirmed Type gabapentin 300 mg capsule 300 mg PO HS 10/30/19 06/13/24 History dulaglutide 0.75 mg/0.5 mL 0.75 mg subcut WK 06/13/24 06/13/24 History subcutaneous pen injector (Trulicity) fluoxetine 20 mg capsule 20 mg PO QAM 06/13/24 06/13/24 History metformin 500 mg tablet,extended 1,000 mg PO BID 06/13/24 06/13/24 History release 24 hr Patient History Medical History Diabetes mellitus (09/01/12) Surgical History History of ankle surgery Family History Other No pertinent family history Social History Smoking Status: Never smoker Hx Alcohol Use: Yes Alcohol type: beer Hx Substance Use: No Preferred Language: Polish Communication Ability: 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 Beliefs That Will Affect Care: None Current Living Situation: Spouse Feels Safe at Home: Yes Assistive Devices: None Review of Systems Constitutional: Patient denies weight loss, fever, chills, and night sweats Eyes: Patient denies change in vision, tearing, pain, and redness ENT: Patient denies pain, bleeding, rhinorrhea, and dysphagia Cardiovascular: Patient denies chest pain, palpitation, dyspnea at rest, and dyspnea with exertion Respiratory: Patient denies shortness of breath, cough, wheezing, and productive cough GI: Patient denies reflux, pain, constipation, and diarrhea Skin: Patient denies rash, dryness, and itching Allergies/Immune System: Patient denies rhinorrhea, seasonal allergies, reaction to current MEDS, and joint swelling Endocrine: Patient denies weight loss, weight gain, temperature intolerance, and excessive thirst Neurological: All negative unless mentioned in the HPI Physical Exam General Constitutional: Appearance normally developed Head and face: normocephalic and atraumatic Eyes: no ptosis, no anisocoria, and no dysconjugate gaze Respiratory: normal effort Cardiovascular: regular rhythm and regular rate Abdomen: non distended Skin: no rashes, lesions, or ulcers noted Psychiatric: normal judgement and insight, normal mood, and normal affect NEUROLOGIC EXAMINATION: Mental Status:alert, oriented to time, place, person, normal recent memory, normal remote memory, normal attention span, normal concentration, normal language and normal fund of knowledge Cranial Nerves: CN 2 - no visual defect on confrontation and pupils round, equal, reactive to light CN 3, 4, 6 - extra-ocular movements intact and no nystagmus CN 5 - facial sensation intact CN 7 - no facial asymmetry CN 8 - intact hearing CN 9, 10 - palate symmetric, normal gag CN 11 - good shoulder shrug CN 12 - tongue midline MOTOR: Strength was at least antigravity throughout, Pronator drift was absent and There were no abnormal movements SENSATION: intact and symmetric to pinprick, light touch, vibration and joint position GAIT: stable, no ataxia and can perform tandem walking COORDINATION: no ataxia with finger to nose testing and heel to ellington testing REFLEXES: cannot assess over telemedicine NIH Stroke Scale: 1a. Level of Consciousness: alert = 0 1b. LOC Questions: (month, age): both correct = 0 1c. LOC Commands (open and close eyes, make fist and let go using non-paretic hand): obeys both correctly = 0 2. Best Gaze (eyes open and patient follows examiner's finger or face): normal = 0 3. Visual (visual threat or finger counting in each quadrant): no loss = 0 4. Facial Palsy (show teeth, raise eye brows and squeeze eyes shut, or grimace symmetry in a comatose patient): normal = 0 5a. Motor Arm (extend arm (palms down) to 90 degrees and score drift/movement (10 seconds) - Left: no drift = 0 5b. Motor Arm: (extend arm (palms down) to 90 degrees and score drift/movement (10 seconds) - Right: no drift = 0 6a. Motor Leg (elevate leg 30 degrees and score drift/ movement (5 seconds) - Left: no drift = 0 6b. Motor Leg (elevate leg 30 degrees and score drift/ movement (5 seconds) - Right: no drift = 0 7. Limb Ataxia (finger to nose, heel down ellington): absent = 0 8. Sensory (pin prick to face, arm, trunk and leg, compare side to side): normal = 0 9. Best Language: no aphasia = 0 10. Dysarthria (evaluate speech clarity by patient repeating listed words): normal articulation = 0 11. Extinction and Inattention: no neglect = 0 Total: 0 Results & Data Vital Signs (Past 12 Hours) Vital Signs Temp Pulse Resp BP Pulse Ox 06/14/24 08:00 36.5 C 06/14/24 08:00 80 06/14/24 06:09 74 0 L 93 06/14/24 06:00 129/76 06/14/24 06:00 129/76 06/14/24 05:54 76 5 L 94 06/14/24 05:45 74 0 L 89 L 06/14/24 05:09 76 12 91 06/14/24 05:00 126/69 06/14/24 04:51 77 0 L 91 06/14/24 04:33 76 0 L 91 06/14/24 04:30 114/66 06/14/24 04:30 114/66 06/14/24 04:15 79 7 L 93 06/14/24 04:00 79 15 96 06/14/24 04:00 138/75 06/14/24 04:00 138/75 06/14/24 04:00 138/75 06/14/24 04:00 36.8 C 06/14/24 03:30 123/67 06/14/24 03:30 70 6 L 100 06/14/24 03:00 124/52 L 06/14/24 03:00 124/52 L 06/14/24 03:00 124/52 L 06/14/24 02:57 69 6 L 95 06/14/24 02:30 118/52 L 06/14/24 02:30 118/52 L 06/14/24 02:30 118/52 L 06/14/24 02:30 70 8 L 98 06/14/24 02:12 70 7 L 98 06/14/24 02:01 121/56 L 06/14/24 02:01 121/56 L 06/14/24 01:57 72 13 99 06/14/24 01:33 72 14 96 06/14/24 01:30 97/52 L 06/14/24 01:30 97/52 L 06/14/24 01:15 72 14 98 06/14/24 01:09 70 7 L 96 06/14/24 01:07 96/44 L 06/14/24 01:07 96/44 L 06/14/24 01:07 96/44 L 06/14/24 01:07 96/44 L 06/14/24 01:07 96/44 L 06/14/24 01:00 77 18 93 06/14/24 00:48 75 18 94 06/14/24 00:42 76 17 94 06/14/24 00:00 36.9 C 06/14/24 00:00 79 06/13/24 23:54 78 17 94 06/13/24 23:39 80 19 94 06/13/24 23:30 114/57 L 06/13/24 23:30 114/57 L 06/13/24 23:30 114/57 L 06/13/24 23:09 81 12 96 06/13/24 23:00 100/54 L 06/13/24 23:00 100/54 L 06/13/24 23:00 79 12 98 Laboratory Results Laboratory Results - last 24 hr 06/13/24 06/13/24 06/13/24 10:29 14:10 14:55 WBC RBC Hgb Hct MCV MCH MCHC RDW Std Deviation RDW Coeff of Ronen Plt Count MPV PT 9.9 INR 0.9 APTT 25 PTT Ratio 0.9 Sodium 137 Potassium 4.3 Chloride 100 Carbon Dioxide 29 Anion Gap 8 BUN 11 Creatinine 0.78 Est Cr Clr Drug Dosing 147.3 eGFR 110.69 BUN/Creatinine Ratio 14.1 Glucose 217 H POC Glucose 170 H Estimat Average Glucose Hemoglobin A1c Calcium 10.2 Phosphorus Magnesium 2.0 Total Bilirubin 0.4 AST 20 ALT 27 Alkaline Phosphatase 57 Troponin I High Sens 5.3 Total Protein 8.0 Albumin 4.9 Globulin 3.1 Albumin/Globulin Ratio 1.6 Triglycerides Cholesterol LDL Cholesterol, Calc VLDL Cholesterol, Calc HDL Cholesterol Cholesterol/HDL Ratio Urine Color Yellow Urine Appearance Clear Urine pH 7.0 Ur Specific [place] 1.027 Urine Protein Negative Urine Glucose (UA) 1+ H Urine Ketones Negative Urine Blood 1+ H Urine Nitrite Negative Urine Bilirubin Negative Urine Urobilinogen Negative Ur Leukocyte Esterase Negative Urine WBC (Auto) 0-5 Urine RBC (Auto) 6-10 H U Hyaline Cast (Auto) 0-2 U Epithel Cells (Auto) 0-2 Urine Bacteria (Auto) None Seen Nasal Screen MRSA (PCR) Negative 06/13/24 06/14/24 21:33 06:40 WBC 6.86 RBC 4.83 Hgb 13.8 L Hct 41.3 L MCV 85.5 MCH 28.6 MCHC 33.4 RDW Std Deviation 37.3 RDW Coeff of Ronen 12.0 Plt Count 202 MPV 8.4 L PT INR APTT PTT Ratio Sodium 142 Potassium 4.3 Chloride 105 Carbon Dioxide 30 Anion Gap 7 BUN 14 Creatinine 0.83 Est Cr Clr Drug Dosing 133.5 eGFR 108.63 BUN/Creatinine Ratio 16.9 Glucose 153 H POC Glucose 146 H Estimat Average Glucose 283 Hemoglobin A1c 11.5 H Calcium 9.1 Phosphorus 4.6 Magnesium 2.0 Total Bilirubin AST ALT Alkaline Phosphatase Troponin I High Sens 6.7 Total Protein Albumin Globulin Albumin/Globulin Ratio Triglycerides 113 Cholesterol 158 LDL Cholesterol, Calc 101 VLDL Cholesterol, Calc 23 HDL Cholesterol 34 Cholesterol/HDL Ratio 4.6 Urine Color Urine Appearance Urine pH Ur Specific [place] Urine Protein Urine Glucose (UA) Urine Ketones Urine Blood Urine Nitrite Urine Bilirubin Urine Urobilinogen Ur Leukocyte Esterase Urine WBC (Auto) Urine RBC (Auto) U Hyaline Cast (Auto) U Epithel Cells (Auto) Urine Bacteria (Auto) Nasal Screen MRSA (PCR) Diagnostic Findings Chest X-Ray 06/13/24 10:26 XR chest 1V portable CLINICAL HISTORY: neuro deficit, acute stroke suspected TECHNIQUE: Single frontal radiograph of the chest was obtained. Comparison: Comparison is made to chest radiograph 01/10/2014 FINDINGS: No lines and tubes are seen. The cardiomediastinal silhouette is normal. The lungs are clear. No evidence of pleural effusion or pneumothorax. IMPRESSION: No acute chest disease. ACT 112: Negative or not required by law. Electronically signed by: Ramon Pink M.D. 06/13/2024 11:57 AM Brain MRI 06/13/24 12:33 MRI OF THE BRAIN COMBO CLINICAL HISTORY: Strokelike symptoms. Left upper extremity tingling and numbness. COMPARISON STUDY: CT of the brain performed the same date 06/13/2024. TECHNIQUE: MRI of the brain was performed utilizing various T1 and T2-weighted sequences in the axial, sagittal, and coronal planes. Contrast-enhanced sequences were acquired following the administration of 12 cc of Gadavist. FINDINGS: Brain parenchyma: There is minimal microangiopathic change. There is no hemorrhage or mass effect. There is no restricted diffusion to suggest acute ischemia. No enhancing mass lesion is identified on the postcontrast images. Anand-white matter differentiation is preserved. No extra-axial fluid collection is seen. The cerebellar tonsils are normal in configuration. Ventricles, sulci, and cisterns: Normal in configuration. Pituitary and sella: Unremarkable. Intracranial vasculature: Normal flow voids are maintained at the skull base. Orbits: The bony orbits are grossly intact. Orbital contents are normal in appearance. Sinuses and mastoids: There are bilateral mastoid effusions. Minor mucosal thickening is noted in the left maxillary sinus, with mild mucosal thickening seen on the right. Calvarium: Unremarkable. Cervical cord: Partially visualized cervical spinal cord is normal in morphology and signal intensity. IMPRESSION: No acute intracranial abnormality. ACT 112: Negative or not required by law. Electronically signed by: Tima White M.D. 06/13/2024 1:57 PM Medications Administered Home Medications Medication Instructions Recorded Confirmed Last Taken gabapentin 300 mg capsule 300 mg PO HS 10/30/19 06/13/24 Unknown dulaglutide 0.75 mg/0.5 mL 0.75 mg subcut WK 06/13/24 06/13/24 Unknown subcutaneous pen injector (Trulicity) fluoxetine 20 mg capsule 20 mg PO QAM 06/13/24 06/13/24 06/13/24 metformin 500 mg tablet,extended 1,000 mg PO BID 06/13/24 06/13/24 06/13/24 release 24 hr Active Medications Generic Name Dose Route Start Last Admin Trade Name Freq PRN Reason Stop Dose Admin Atorvastatin Calcium 40 mg 06/14/24 09:00 06/14/24 08:00 Atorvastatin 40 Mg Tab PO 07/14/24 08:59 40 mg QAM HAYDEE Administration Fluoxetine HCl 20 mg 06/14/24 09:00 06/14/24 08:00 Fluoxetine Hcl 20 Mg Cap PO 07/14/24 08:59 20 mg QAM HAYDEE Administration Gabapentin 300 mg 06/13/24 21:00 06/13/24 21:36 Gabapentin 300 Mg Cap PO 07/13/24 20:59 300 mg HS HAYDEE Administration Insulin Aspart 0 units 06/13/24 16:30 06/14/24 07:57 Insulin Aspart Per Unit Charge SC 07/13/24 16:29 12 units ACHS HAYDEE Administration Lisinopril 5 mg 06/13/24 13:15 06/14/24 08:00 Lisinopril 5 Mg Tab PO 07/13/24 13:14 5 mg QAM HAYDEE Administration Miscellaneous 1 each 06/13/24 18:00 06/14/24 07:59 Icu Electrolyte Replacement Protocol N/A 06/20/24 17:59 Not Given BID@ [facility] Protocol
--- NOTE | 2024-06-14 12:26 | Pharmacy Report ---
Pharmacy Glycemic Short Note 2 - Date of Service June 14, 2024 - Glycemic Short BSG Results (Last 24 hours): 06/13/24 06/13/24 06/14/24 14:55 21:33 06:40 Glucose 153 H POC Glucose 170 H 146 H 06/14/24 11:41 Glucose POC Glucose 173 H OUTPATIENT ANTIDIABETIC REGIMEN: * Trulicity * Metformin * HbA1c 11.5% ASSESSMENT: * 49 yo M admitted for stroke-like symptoms. Original BSG elevated at 219 mg/dL. Novolog weight-based moderate stress initiated yesterday and BSG's improved. AM fasting BSG today above goal range. Will start low dose Lantus at 0.2 units/kg x1 PLAN FOR INPATIENT GLYCEMIC CONTROL: * Hold outpatient oral diabetes medications * Basal insulin * Lantus 25 units SQ x1 now * Bolus insulin * NovoLog per scale ACHS or Q6hrs while NPO * Goal Range: Low 110 mg/dL - High 140 mg/dL * Correction Factor: 20 mg/dL/unit * Nutritional / Prandial insulin per carb ratio of 1 unit per 6 grams CHO consumed
--- NOTE | 2024-06-14 12:44 | CT Scan Report ---
CT head/brain wo con CLINICAL HISTORY: 49 years-old Male with follow up CT, TNK. Acute stroke like symptoms TECHNIQUE: Multiple axial CT images of the head were obtained without contrast. A dose lowering tech nique was utilized adhering to the principles of ALARA. CT DOSE: 625.8 mGy.cm COMPARISON: Head CT and brain MRI studies 06/13/2024 FINDINGS: No acute intracranial hemorrhage, midline shift, intracranial mass, hydrocephalus, territorial ischem ia or abnormal extra-axial collection. Subcentimeter calcifications of the dentate nuclei of the cere bellum. The calvarium is intact. Mild right and moderate left maxillary sinus polypoid mucosal thickening. S mall to moderate mastoid effusions. IMPRESSION: No acute intracranial abnormality. ACT 112: Negative or not required by law. The above report was generated using voice recognition software. It may contain grammatical, syntax o r spelling errors. Electronically signed by: Bijan Isaac M.D. 06/14/2024 12:43 PM
[2024-06-14] MEDS ORDERED: STROKE PATIENT DISCHARGE STA (15:20)
--- NOTE | 2024-06-14 15:23 | Discharge Summary ---
Discharge Summary Date of Service June 14, 2024 Principal Dx & Hospital Course #1 = Principal Diagnosis (1) Stroke-like symptoms: George Donovan is a 49y/o M with PMHx significant for DM type II, diabetic peripheral neuropathy, hyperlipidemia, HTN, vitamin D deficiency, depression and celiac disease who presented to the ED for evaluation of stroke-like symptoms. 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 He was subsequently made a stroke alert on arrival to the ED. Patient was seen and evaluated by the telestroke neurologist from [facility]. Decision was ultimately made to administer TNK. TNK was administered at 11:27 AM. Patient reports that his symptoms are now significantly improved following TNK administration. His gums however did start to bleeding after receiving TNK. Stroke-Like Symptoms S/P TNK Administration: History as per above. Head CT was negative. Head CTA revealed mild atherosclerotic calcification of the cavernous carotid arteries but was otherwise unremarkable. Neck CTA showed moderate to severe stenosis at the origin of the left vertebral artery and mild plaque within the bilateral carotid bifurcations without stenosis within the bilateral common carotid/cervical internal carotid arteries. Brain MRI without any acute intracranial abnormalities. Patient observed closely in the ICU for 24 hours following TNK administration Repeat head CT at that time was negative for any bleed or acute findings Gingival bleeding resolved Presenting stroke-like symptoms seemed to resolve following TNK administration Neurology consulted, appreciate recs. Recommended/stated the following: "-Differential diagnosis includes acute ischemic stroke alerted by TNK, versus hypertensive encephalopathy Start Plavix 75 mg in addition to aspirin 81 mg and atorvastatin 80 mg for 21 days followed by aspirin 81 mg and continue statins. Recommend a Zio patch on discharge. Risk factor modifications including diabetes and hypertension. - Weight loss was advised. Follow-up with neurology and if needed cardiology as outpatient" Patient cleared by physical therapy and Occupational Therapy. Patient did not need speech therapy services patient received dose of Plavix and aspirin per neurology recommendations after 24 hours of TNK administration discharged home with 20 more days of Plavix per neurology recommendation to complete a 21-day course Also discharged with aspirin 81 mg daily and atorvastatin 80 mg daily as well as lisinopril 5 mg daily Chest Pain - RESOLVED: Patient was complaining of some nonspecific central chest pain prior to administration of TNK that has now completely resolved. troponins x 3 negative initial EKG without any overtly acute ischemic changes HTN: He does have hypertension however he does not take any medications for this [employer]. Patient was quite hypertensive in the 200s/100s in the ED upon arrival, s/p 10mg IV labetalol His BP subsequently improved to 151/66 at time of admission mentions that he used to take 5mg lisinopril daily however he has not done so in quite a long time was restarted on lisinopril 5 mg daily with improvement of blood pressure to normal limits. Close PCP follow-up after discharge for continued monitoring and as needed titration of lisinopril. DM Type II: Held home agents, SSI regimen while inpatient. BSG checks ACHS. Most recent Hgb A1c was 12.9% on 05/20/2024 Repeat hemoglobin A1c of 11.5 on 06/14/2024, with noted improvement Patient currently takes Trulicity at home every week as well as metformin 1000 mg twice daily, recently started on this increased regimen Patient follows with [facility] pharmacy for diabetes management as an outpatient Has scheduled follow-up on 06/16/2024 Close PCP follow-up for continued management, consider starting on basal insulin once more. Other Chronic Medical Conditions: Depression, diabetic peripheral neuropathy --> Can continue home medications for these specific conditions. This chart was completed in part utilizing Speech Voice Recognition Software. Grammatical errors, random word insertions, pronoun errors, and incomplete sentences are an occasional consequence of this system due to software limit ations, ambient noise, and hardware issues. Any formal questions or concerns about the content, text, or information contained within the body of this dictation should be directly addressed to the provider for clarification. Notes For Next Care Provider please ensure follow-up with neurology after discharge Neurology recommending a Zio patch on discharge. Please assist with diabetic control. Please ensure follow-up with [facility] pharmacy for diabetes management. Consider starting basal insulin given hemoglobin A1c greater than 11 Please ensure blood pressure control. Titrate lisinopril as needed. Medication Changes From Visit Plavix 75 mg daily for the next 20 days Aspirin 81 mg daily Atorvastatin 80 mg daily lisinopril 5 mg daily Admission HPI Per Admitting Provider Philippe Donovan is a 49y/o M with PMHx significant for DM type II, diabetic peripheral neuropathy, hyperlipidemia, HTN, vitamin D deficiency, depression and celiac disease who presented to the ED for evaluation of stroke-like symptoms. History obtained from patient, family at bedside and associated chart review. 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 He was subsequently made a stroke alert on arrival to the ED. Patient was seen and evaluated by the telestroke neurologist from [facility]. Decision was ultimately made to administer TNK. TNK was administered at 11:27 AM. Patient reports that his symptoms are now significantly improved following TNK administration. He is still endorsing some mild weakness in his left upper extremity but he is able to actively move it without any issue. He denied any visual disturbances or changes. Patient with some bleeding gums following administration of TNK. He denies any further bleeding elsewhere. His reports that he was complaining of some headaches over the past couple of days but otherwise was feeling fine. He did have some very nonspecific central chest pain that has since resolved following TNK administration. He has no personal history of stroke or TIA that he can recall. Denies any recent trauma or fall. There was no facial drooping or speech difficulties. He does have hypertension however he does not take any medications for this. Patient was hypertensive in the 200s/100s in the ED upon arrival. He is now s/p 10mg IV labetalol. His BP subsequently improved to 151/66. mentions that he used to take 5mg lisinopril daily however he has not done so in quite a long time. He also used to take rosuvastatin 20mg daily for hyperlipidemia however he does not take that medication anymore. Admission Exam Per Admitting Provider General: WD/WN, vitals as above, NAD, sitting up in bed, pleasant, conversing appropriately. A+Ox3, euthymic affect. HEENT: Normocephalic, atraumatic. PERRL, conjunctivae normal, anicteric sclerae. External ear and nose normal, bleeding gums noted. Respiratory: Normal respiratory effort, lungs clear to auscultation, no wheeze, rales, rhonchi. No accessory muscle use. Cardiovascular: Regular rate, rhythm, no murmur, normal peripheral pulses, no BLE edema. Vessels: No JVD. Abdomen/GI: Normal bowel sounds, soft, nontender, no hepatosplenomegaly. Extremities/Musculoskeletal: No cyanosis or clubbing, 4/5 LUE strength, 5/5 LLE strength, actively moves all extremities. Neurologic: EOMI, no focal deficits, CN's II-XI not formally tested but appear grossly intact bilaterally. Skin: No rashes, normal color, warm/dry. Discharge Exam General: Alert, oriented. No acute distress Psych: Appropriate mood and affect Neuro: No gross deficits HEENT: NC/AT CV: RRR, Normal s1, s2. Resp: Breath sounds clear bilaterally, no increased effort of breathing Abdomen: Soft, nontender, nondistended Extremities:strength 5/5 in lower extremities bilaterally. Updated Medication List Medication Instructions Recorded Confirmed Type gabapentin 300 mg capsule 300 mg PO HS 10/30/19 06/13/24 History dulaglutide 0.75 mg/0.5 mL 0.75 mg subcut WK 06/13/24 06/13/24 History subcutaneous pen injector (Trulicity) fluoxetine 20 mg capsule 20 mg PO QAM 06/13/24 06/13/24 History metformin 500 mg tablet,extended 1,000 mg PO BID 06/13/24 06/13/24 History release 24 hr aspirin 81 mg tablet,delayed 81 mg PO DAILY #30 tabs 06/14/24 Rx release atorvastatin 80 mg tablet 80 mg PO DAILY #30 tabs 06/14/24 Rx clopidogrel 75 mg tablet (Plavix) 75 mg PO DAILY #20 tabs 06/14/24 Rx lisinopril 5 mg tablet (Zestril) 5 mg PO QAM #30 tabs 06/14/24 Rx Hospital Stay Data Consultations 06/13/24 12:12 ED Decision to Admit Stat 06/13/24 12:33 Consult [facility] Routine Consult Neurology Routine Diagnostic Imagining Performed 06/13/24 10:26 CT angio head w con Stat CT angio neck with con Stat CT head/brain wo con Stat 06/13/24 12:33 MR brain wo/w con Routine 06/14/24 11:27 CT head/brain wo con Urgent Chest X-Ray 06/13/24 10:26 XR chest 1V portable CLINICAL HISTORY: neuro deficit, acute stroke suspected TECHNIQUE: Single frontal radiograph of the chest was obtained. Comparison: Comparison is made to chest radiograph 01/10/2014 FINDINGS: No lines and tubes are seen. The cardiomediastinal silhouette is normal. The lungs are clear. No evidence of pleural effusion or pneumothorax. IMPRESSION: No acute chest disease. ACT 112: Negative or not required by law. Electronically signed by: Ramon Pink M.D. 06/13/2024 11:[address] 06/13/24 10:26 CT head/brain wo con CLINICAL HISTORY: neuro deficit, acute stroke suspected Technique: Contiguous axial CT images of the head were acquired from the base of the skull to the vertex without intravenous contrast administration. Images were viewed in brain, subdural and bone windows. Automated dose lowering techniques and/or adjustment according to patient size were utilized for this exam. Comparison: None available at the time of this dictation. Findings: The ventricles, basal cisterns, and cerebral sulci are normal. There is no acute intracranial hemorrhage or evidence of acute territorial infarction. Neither mass effect, shift of the midline structures, nor abnormal extra-axial fluid collections are shown. Soft tissue thickening seen in the sinuses most prominently in the bilateral max illary sinuses. The orbits appear normal. There are no acute fractures of the calvaria or scalp swelling. Impression: No acute intracranial hemorrhage, no evidence of acute territorial infarction or other acute intracranial disease process. ACT 112: Negative or not required by law. Electronically signed by: Ramon Pink M.D. 06/13/2024 10:49 AM Head CTA 06/13/24 10:26 CT ANGIOGRAM OF THE BRAIN CLINICAL HISTORY: Neurological deficit. Stroke like symptoms. Left-sided weakness. COMPARISON STUDY: Unenhanced CT of the brain performed concurrently on . TECHNIQUE: Following the IV administration of 119 cc of Optiray 320, CT angiogram of the brain was performed from the skull base to the vertex. Images are reviewed in the axial, sagittal, and coronal planes. 3-D MIPS images are created and assessed. IV contrast was administered without complication. A dose lowering technique was utilized adhering to the principles of ALARA. CT DOSE: 1392.18 mGy.cm FINDINGS: Brain parenchyma: The brain parenchyma is normal in appearance. There is no evidence of hemorrhage, mass effect, or acute territorial ischemia noting angiographic phase technique. There is no evidence of enhancing mass lesion on the angiogram phase images. No extra-axial fluid collection is seen. Anand-white matter differentiation is preserved. Ventricles, sulci, and cisterns: Normal in configuration. CT angiogram of the brain: There is mild atherosclerotic calcification of the cavernous carotid arteries. The internal carotid arteries are widely patent, as are the anterior and middle cerebral arteries. The vertebrobasilar system and posterior cerebral arteries are widely patent. The right vertebral artery is dominant. There is no aneurysm, high-grade stenosis, or focal vessel cutoff identified throughout the intracranial circulation. Dural sinuses: Clear as visualized. Orbits: The bony orbits are intact. The orbital contents are normal as visualiz ed. Sinuses and mastoids: There is moderate mucosal thickening in the left maxillary antrum. Mild mucosal thickening is seen on the right. The remaining paranasal sinuses are clear. There are bilateral mastoid effusions. Calvarium: Unremarkable. IMPRESSION: 1. There is no evidence of hemorrhage, mass effect, or acute territorial ischemia noting angiographic phase technique. 2. Unremarkable CT angiogram of the brain. ACT 112: Negative or not required by law. Electronically signed by: Tima White M.D. 06/13/2024 10:53 AM Neck CTA 06/13/24 10:26 CT ANGIOGRAPHY OF THE NECK WITH CONTRAST CLINICAL HISTORY: neuro deficit, acute stroke suspected COMPARISON STUDY: No previous studies for comparison. Technique: CT angiography of the carotid and vertebral arteries was obtained using Optiray and 3D reconstruction on an independent workstation. NASCET criteria was utilized. Automated exposure control was utilized for the study. A dose lowering technique was utilized adhering to the principles of ALARA. Findings: Visualized portions of the lung apices are unremarkable. There is no cervical lymphadenopathy. No cervical spine fractures are noted. There is moderate polypoid mucosal thickening of the left maxillary sinus, partially imaged on this exam. There is an apparent periapical lucency of the left first maxillary molar, partially imaged. There is mild calcified and noncalcified atherosclerotic plaque of the bilateral carotid bifurcations without stenosis. There is no aneurysm or dissection within the neck. The right vertebral artery is dominant and patent. There is moderate to severe stenosis at the origin of the left vertebral artery. IMPRESSION: 1. 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 Dominant, patent right vertebral artery. 2. Mild plaque within the bilateral carotid bifurcations without stenosis within the bilateral common carotid or cervical internal carotid arteries. ACT 112: Negative or not required by law. Electronically signed by: Sarthak Means M.D. 06/13/2024 10:55 AM Brain MRI 06/13/24 12:33 MRI OF THE BRAIN COMBO CLINICAL HISTORY: Strokelike symptoms. Left upper extremity tingling and numbness. COMPARISON STUDY: CT of the brain performed the same date 06/13/2024. TECHNIQUE: MRI of the brain was performed utilizing various T1 and T2-weighted sequences in the axial, sagittal, and coronal planes. Contrast-enhanced sequences were acquired following the administration of 12 cc of Gadavist. FINDINGS: Brain parenchyma: There is minimal microangiopathic change. There is no hemorrhage or mass effect. There is no restricted diffusion to suggest acute ischemia. No enhancing mass lesion is identified on the postcontrast images. Anand-white matter differentiation is preserved. No extra-axial fluid collection is seen. The cerebellar tonsils are normal in configuration. Ventricles, sulci, and cisterns: Normal in configuration. Pituitary and sella: Unremarkable. Intracranial vasculature: Normal flow voids are maintained at the skull base. Orbits: The bony orbits are grossly intact. Orbital contents are normal in appearance. Sinuses and mastoids: There are bilateral mastoid effusions. Minor mucosal thickening is noted in the left maxillary sinus, with mild mucosal thickening seen on the right. Calvarium: Unremarkable. Cervical cord: Partially visualized cervical spinal cord is normal in morphology and signal intensity. IMPRESSION: No acute intracranial abnormality. ACT 112: Negative or not required by law. Electronically signed by: Tima White M.D. 06/13/2024 1:[address] 06/14/24 11:27 CT head/brain wo con CLINICAL HISTORY: 49 years-old Male with follow up CT, TNK. Acute stroke like symptoms TECHNIQUE: Multiple axial CT images of the head were obtained without contrast. A dose lowering technique was utilized adhering to the principles of ALARA. CT DOSE: 625.8 mGy.cm COMPARISON: Head CT and brain MRI studies 06/13/2024 FINDINGS: No acute intracranial hemorrhage, midline shift, intracranial mass, hydrocephalus, territorial ischemia or abnormal extra-axial collection. Subcentimeter calcifications of the dentate nuclei of the cerebellum. The calvarium is intact. Mild right and moderate left maxillary sinus polypoid mucosal thickening. Small to moderate mastoid effusions. IMPRESSION: No acute intracranial abnormality. ACT 112: Negative or not required by law. The above report was generated using voice recognition software. It may contain grammatical, syntax or spelling errors. Electronically signed by: Bijan Isaac M.D. 06/14/2024 12:43 PM Pending Results Patient Have Any Pending Studies at Discharge: No Discharge Instructions Given to Patient (Per Discharging Provider) Philippe, You are admitted and treated for strokelike symptoms. You received a very potent blood thinner and we monitored you in the ICU. Your symptoms have cu rrently resolved. You were seen by the neurologist who recommends discharge home with the following medications: Plavix 75 mg daily for the next 20 days only starting tomorrow 06/15/2024. They recommend that she continue with a daily baby aspirin 81 mg on a continuous basis. They also switched your cholesterol medication to atorvastatin 80 mg daily. Please take your medications as prescribed. Please keep close follow-up with neurology after discharge. Your diabetes is also not currently controlled. You had medications that were recently changed by your primary care provider. Continue with the Trulicity and the metformin at 1000 mg twice a day. You are currently scheduled for follow-up with [facility] pharmacy diabetic program on June 16, 2024. Please keep that appointment as scheduled. They will discuss with you at that appointment starting basal insulin like you were on before. It is very important that you keep that appointment. Please continue with the lisinopril 5 mg prescribed to help with your blood pressure. It is very important that you keep your diabetes and blood pressure controlled to help with preventing further episodes or symptoms that you presented with. Please keep close follow up with your primary care provider after discharge. They can help with any additional needed paperwork for time off. Please do not hesitate to come back to the emergency room if your symptoms worsen or return. It was a pleasure taking care of you while you were here. Total Time Total Time Spent Total Time Spent (In Minutes): 65
[2024-06-14] MEDS: CLOPIDOGREL BISULFATE 75 MG TAB PO ONE (15:52)
[2024-06-14] MEDS: ASPIRIN 81 MG ECTAB PO SCH (15:54)
[2024-06-15] MEDS ORDERED: LANTUS PER UNIT CHARGE SC SCH (09:00)
== END 2024-06-14 16:12 | disposition home or self-care (01) | DRG 57 ==
LOC: ED 10:13 → SUATTDRO 12:33 → 1E 12:33